=== PATIENT | female | born 1955 | race Caucasian/White ===

== ENCOUNTER 2019-01-28 01:04 | Day surgery (SDC) | payer MEDICARE ==
[2014-02-28 15:00] VITALS: Ht 166.4 cm; Wt 59.0 kg
[~2019-01-28] VITALS: Ht 166.4 cm; Wt 59.0 kg
[~2019-01-28 01:04] MED LIST: ALPR-1 PO; CIPR-344 PO; DEXA2TAB7 PO; FENT-15 TD; HYDR-385 PO; LEV112 PO; LEVO-3 PO; LORA10CA3 PO; METH4TAB66 PO; OMEP40CA48 PO; PROC10TA4; PROC10TA4 PO; PYRI100T59 PO; TRAM-420 PO
[2019-01-28] MEDS ORDERED: LIDOCAINE/SOD BICARB 8.4% SYR ID ONE (09:00)
[2019-01-28] MEDS ORDERED: NORMOSOL R SOLN(*) 1000 ML BAG 1,000 ML IV PRN (09:00)
[2019-01-28] MEDS ORDERED: metroNIDAZOLE* 500MG/100ML BAG 100 ML IVPB ONE (09:00)
[2019-01-28] MEDS ORDERED: FAMOTIDINE 20 MG TAB PO ONE (09:00)
[2019-01-28] MEDS ORDERED: MIDAZOLAM 2 MG/2 ML VIAL IVP PRN (09:00)
[2019-01-28] MEDS ORDERED: LEVOFLOXACIN/D5W*500 MG/100 ML 100 ML IVPB ONE (09:00)
[2019-01-28] MEDS ORDERED: fentaNYL CITR 100 MCG/2 ML AMP ONE (12:39)
[2019-01-28] MEDS ORDERED: ONDANSETRON 4 MG/2 ML VIAL ONE (12:40)
[2019-01-28] MEDS ORDERED: DEXAMETHASONE SOD PHOS 10MG/ML ONE (12:40)
[2019-01-28] MEDS ORDERED: PROPOFOL EMUL(*) 10MG/ML 20 ML 20 ML ONE (12:40)
[2019-01-28] MEDS ORDERED: LIDOCAINE MPF 1% 5 ML VIAL ONE (12:40)
[2019-01-28 13:30] VITALS: BP 104/70
[2019-01-28] MEDS ORDERED: FAMOTIDINE(*) 20MG/50ML PREMIX 50 ML IVPB ONE (13:58)
[2019-01-28] MEDS ORDERED: ROPIVACAINE 0.5% 20 ML VIAL ONE (14:06)
[2019-01-28] MEDS ORDERED: NS(*) 0.9% 10 ML VIAL 10 ML ONE ×2 (14:06→15:34)
[2019-01-28] MEDS ORDERED: HEPARIN SOD LCK FLSH 100 UN/ML ONE (14:06)
[2019-01-28] MEDS ORDERED: NS 0.9% 20 ML SDV 20 ML ONE (14:33)
[2019-01-28] MEDS ORDERED: EPINEPHrine HCL 1 MG/ML AMP ONE (15:35)
[2019-01-28] MEDS ORDERED: TRAM-420 PO (16:24)
--- NOTE | 2019-01-28 16:29 | Short(Outpt) Discharge Summary ---
Discharge Summary Reason for Hosp/Final Diag: (1) Carcinoma of ovary Status: Acute Hospital Course & Plan: Right IJ Power Port placed without problems. (2) Mass of colon Status: Chronic Hospital Course & Plan: Colonoscopy with biopsy of colon mass completed without problems. Departure Discharge to: Home, Self Care Discharge Instructions Home Meds Active Scripts Tramadol Hcl (TRAMADOL HCL) 50 Mg Tablet, 1 TAB PO Q4-6H for PAIN, #30 TAB 0 Refills Prov:MECCA COOL MD 01/28/19 Diet: Regular Activity: As Tolerated Special Instructions: You may leave the incisions open to air but leave the steristrips in place until they fall off on their own. You may shower starting on 01/30/19, but don't immerse the incisions for 2 weeks. There is a suture in your neck that SHOULD fall out in about 2 weeks. If it doesn't, cancer center staff can remove the suture or you can call my office and we'll be happy to remove the suture. Problem Qualifiers (1) Carcinoma of ovary: Laterality: unspecified laterality Qualified Codes: C56.9 - Malignant neoplasm of unspecified ovary MECCA COOL MD January 28, 2019 16:29
[2019-01-28] MEDS ORDERED: PROMETHAZINE 25 MG/ML 1 ML AMP ONE (16:46)
--- NOTE | 2019-01-28 16:49 | RADIOLOGY IMAGING REPORT ---
FACILITY: [facility] [place] PATIENT NAME: Gia Vargas : 1955 MR: [id number] V: [id number] EXAM DATE: ORDERING PHYSICIAN: MECCA COOL TECHNOLOGIST: Location: [facility] Patient: Gia Vargas : 1955 Visit/Account:[id number] Date of Sevice: 01/28/2019 Exam type: FLUORO NG TUBE PLACEMENT History: PORT CATH PLACEMENT Comparison: None. Findings: Two fluoroscopic spot views of the right upper thorax demonstrate placement of a right IJ implanted p ort. The distal tip is not included on the image. The total dose area product was 0.2577 Weldon per c entimeter squared IMPRESSION: 1. As above Report Dictated By: Elsa Manzano MD at 01/28/2019 4:44 PM Report E-Signed By: Elsa Manzano MD at 01/28/2019 4:45 PM WSN:[email or web address]
--- NOTE | 2019-01-28 17:02 | RADIOLOGY IMAGING REPORT ---
FACILITY: [facility] PATIENT NAME: Gia Vargas : 1955 MR: [id number] V: [id number] EXAM DATE: ORDERING PHYSICIAN: MECCA COOL TECHNOLOGIST: Location: [facility] - [place] Patient: Gia Vargas : 1955 Visit/Account:[id number] Date of Sevice: 01/28/2019 Chest single view: HISTORY: Right IJ PowerPort placement COMPARISON: Chest x-ray 02/24/2014 FINDINGS: Frontal view the chest: Since the prior study, a new chest port and catheter is been placed , catheter tip is near the right atrial SVC junction, reservoir in the subcutaneous soft tissues over lying the right mid hemithorax. Catheter has been placed via a right IJ approach. Heart and mediastinal contours are within normal limits. There is no infiltrate or pleural effusion. No pneumothorax. Pulmonary vasculature is normal. IMPRESSION: 1. No pneumothorax or other apparent complication status post chest port placement. 2. Right chest port catheter tip at the right atrial SVC junction, reservoir in the subcutaneous tis sues overlying the right chest wall. Report Dictated By: Agustina Solis MD at 01/28/2019 4:55 PM Report E-Signed By: Agustina oSlis MD at 01/28/2019 4:58 PM WSN:[email or web address]
[2019-01-28 17:15] VITALS: BP 108/66
--- NOTE | 2019-01-28 17:25 | Post Operative Progress Note ---
Post Operative Progress Note Date: January 28, 2019 Time: 16:30 Surgeon: Stella Dictation number: [id number] Anesthesia: LMA by Dr. Marrufo Pre-Op Diagnosis: H/O ovarian cancer Splenic flexure tumor on CT Post-Op Diagnosis: MAYELIN Findings: Tumor at splenic flexure Procedure(s): Right IJ Power Port placement Colonoscopy with biopsy of splenic flexure tumor Specimen Removed:(May be N/A): Biopsies of colon tumor Complications: None Fluids: Seen anesthesia record Estimated Blood Loss: Minimal Date OP Note Dictated: January 28, 2019 Time OP Note Dictated: 16:33 MECCA COOL MD January 28, 2019 16:33
[2019-01-28 17:30] VITALS: BP 104/69
--- NOTE | 2019-01-28 19:44 | OPERATIVE REPORT 1 ---
EVENT DATE: January 28, 2019 SURGEON: Luke Douglas MD ANESTHESIOLOGIST: Dangelo Marrufo MD ANESTHESIA: LMA. PREOPERATIVE DIAGNOSES 1. Metastatic stage IV cancer, unknown primary, presumed to be recurrent ovarian cancer. 2. History of ovarian cancer. POSTOPERATIVE DIAGNOSES 1. Metastatic stage IV cancer, unknown primary, presumed to be recurrent ovarian cancer. 2. History of ovarian cancer. PROCEDURES PERFORMED 1. Right internal jugular PowerPort placement. 2. Colonoscopy, refer to the endoscopy report for details about this. COMPLICATIONS None. CONDITION Stable. BLOOD LOSS Minimal. INDICATIONS This is a 63-year-old female with a history of ovarian cancer about five years ago who was undergoing routine surveillance by the oncologist, and CT scan showed what looks to be metastatic disease including in her liver, and there is a mass in the splenic flexure of her colon. He suspects it is a recurrence of her ovarian cancer, but he is requesting a PowerPort to start chemotherapy and a colonoscopy to biopsy the mass at the splenic flexure to get a better histologic diagnosis before starting chemotherapy. DESCRIPTION OF PROCEDURE The patient was brought to the operating room and placed supine on the operating table. LMA anesthesia was administered, and her right neck, chest, and shoulder were prepped and draped in a sterile fashion. Timeout was completed, and with her in Trendelenburg, I used the ultrasound to identify the right internal jugular vein. I used the needle and accessed the vein on one attempt, threaded the wire through the vein, and removed the needle with the wire in place. I confirmed the position of the wire in the SVC with the C-arm fluoroscope and then anesthetized the skin in the neck as well as the right infraclavicular skin. I then made a stab incision in the neck where the wire enters the skin and then made a transverse incision in the right infraclavicular skin right through the previous scar from a previous port when she was treated for ovarian cancer before. I then dissected through the dermis and subcutaneous fat. I dissected caudad to the incision, and this dissection was rather easy due to the presence of the previous port which had been in this pocket. I made sure this was hemostatic and then used the tunneler and dragged the catheter from the pocket up to the stem incision in the neck. I then removed the tunneler from the catheter. With her in Trendelenburg, I threaded the dilator and sheath over the wire, took a C-arm image to make sure that the dilator and sheath were in the SVC and then removed the dilator and wire, threaded the catheter through the sheath, and removed the sheath. I then pulled the catheter back under fluoroscopic guidance so the tip was in the SVC just above the right atrium, and then I cut it to length. I then put the port on the catheter and locked it into place with the locking cuff. I then sutured the port down to the underlying muscle fascia with 2-0 nylon at the corners. I then aspirated blood through the catheter port and then flushed it with 10 mL of normal saline and then flushed it with 5 mL of 100 units/mL of heparinized saline. I then aspirated blood, and it flushed without any problems. I then took more C-arm images to confirm it was in good position without any kinks or twists. Then, I placed a single 3-0 chromic in the stab incision in the neck and then closed the port pocket incision with interrupted 3-0 Vicryl deep dermal sutures and 4-0 Monocryl running subcuticular sutures. Skin was cleaned and dried, and Steri-Strips were applied over the incisions. We then positioned her for colonoscopy, and the colonoscopy was completed without problems. Please refer to the colonoscopy report for details about this. She was then awakened and LMA removed. She was transported to the recovery room in stable condition having tolerated the procedure without any apparent problems. REA
== END 2019-01-28 17:15 | disposition home or self-care (01) ==
LOC: OR 01:04
PROVIDERS: ATTEND Surgery
DX: C56.9 Malignant neoplasm of unspecified ovary (principal); D49.0 Neoplasm of unspecified behavior of digestive system; D49.59 Neoplasm of unspecified behavior of other genitourinary organ
CPT/HCPCS: 00811; 36561; 45380; 71045; 77001; 88305; J0171; J1100; J1956; J2001; J2250; J2405; J2550; J2704; J2795; J3010; J3490; J7050; C1788

== ENCOUNTER → 2019-02-15 | Outpatient (CLI) | payer MEDICARE ==
[2014-02-28 15:00] VITALS: BMI 22.0
[~2019-02-15] MED LIST changes: +GADOBENATE 529MG/1ML 15ML VIAL IVP ONE; +LEVO50TA80 PO
--- NOTE | 2019-02-15 14:20 | RADIOLOGY IMAGING REPORT ---
FACILITY: [facility] [place] PATIENT NAME: Gia Vargas : 1955 MR: [id number] V: [id number] EXAM DATE: ORDERING PHYSICIAN: JARAD WANG TECHNOLOGIST: Location: Patient: Gia Vargas : 1955 Visit/Account:[id number] Date of Sevice: 02/15/2019 Examination: MR brain without and with contrast History: Evaluate for metastatic disease, ovarian cancer Comparison: None Technique: Multiplane MR imaging was performed through the brain without and with contrast. 15 cc IV multihance was administered. Findings: Diffusion: Punctate T2 shine through artifact in the left frontal white matter noted. Ventricles: Normal Midline shift: None Extraxial fluid: None Midline craniocervical structures: Normal Parenchyma: Greater than 10 scattered punctate to small white matter high signal foci. Enhancement: No pathologic enhancement Vascular flow voids: Normal Orbits and paranasal sinuses: Small mucous retention cyst within a left posterior ethmoid air cell. Other: No significant additional finding. Impression: 1. No metastatic disease identified. 2. No acute finding. 3. Mild chronic small vessel ischemic change. Report Dictated By: Jon Junior MD at 02/15/2019 2:10 PM Report E-Signed By: Jon Junior MD at 02/15/2019 2:15 PM [id number]
== END ==
LOC: MRI 10:49
PROVIDERS: ATTEND Internal Medicine Hematology
DX: C56.2 Malignant neoplasm of left ovary (principal)
CPT/HCPCS: 70553; A9577

== ENCOUNTER → 2019-03-10 | Outpatient (CLI) | payer MEDICARE ==
[2014-02-28 15:00] VITALS: BMI 22.0
[~2019-03-10] MED LIST changes: -GADOBENATE 529MG/1ML 15ML VIAL IVP ONE; +LORA-630 PO; +OMEP-137 PO; +ONDA4TAB97 PO
== END ==
LOC: SPU 17:00
PROVIDERS: ATTEND Internal Medicine Hematology
DX: C56.9 Malignant neoplasm of unspecified ovary (principal)

== ENCOUNTER → 2019-04-13 | Outpatient (RCR) | payer MEDICARE, OTHER ==
[2014-02-28 15:00] VITALS: Ht 161.5 cm; Wt 59.2 kg
[2019-01-13 15:31] LABS: PLATELET COUNT, AUTOMATED 173 K/uL (150-450)
--- NOTE | 2019-01-13 22:58 | ONCOLOGY FOLLOW UP NOTE ---
EVENT DATE: January 13, 2019 DIAGNOSES 1. Recurrent ovarian carcinoma. 2. 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 3. Hypothyroidism. 4. Gastroesophageal reflux disease. 5. Hypertension. CHIEF COMPLAINT Gia is here today for followup for her recurrent ovarian carcinoma with complaints of bladder problems or bladder cancer. ONCOLOGY HISTORY This is a 63-year-old woman with the diagnosis of left ovarian carcinoma in 2011. 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 The tumor involves the left ovary, right ovary, omentum, endometrial mucosa, serosal surfaces of the uterus, appendix serosa, sigmoid colon serosa, and left pelvic sidewall. The patient was staged as FIGO stage IIIC (pT3c pNX cM0). Patient did not receive any adjuvant chemotherapy because she did not have insurance at that time. She then followed holistic measures for her treatment. INTERIM HISTORY Gia is a 63-year-old woman who has been lost to followup since August 2016. She was treated for her stage IIIC ovarian cancer with six cycles of carboplatin and Taxol between 02/28/14 and 07/29/14. She had a PET scan post chemotherapy which was negative for hypermetabolic metastasis, and she was deemed to be in complete remission. Since that time, patient tells me she has been just busy and has been following up with a homeopathic practitioner, Darius Monique. She reports being fairly healthy and very active and watches her weight, watches her sugar intake, and overall feels well. She does state that over the last four or five months, she has been plagued by bladder issues. She is quite adamant that she believes she either has stones or bladder cancer and would like for us to evaluate that today. She tells me that back in either the summer or fall of last year, she was seen at [facility] in [place], [place], for her UTI symptoms. She was prescribed a course of antibiotics. She did not really believe in antibiotics or medications and tells me that she tolerated antibiotics quite poorly. This then resulted in a vaginal yeast infection. She has not tried any prescription medications since that time and does not follow up with any physicians other than her homeopathic practitioner. She does not have a primary care physician. She does not have a clinical resource manager. She reports that she has pain sitting down, but denies that this is burning. She simply reports pain when sitting to urinate, but also states that she just has pain when sitting down. She tells me that she has been hypotensive in the past, but is unsure of how low her blood pressure has been. She was told her blood pressure was low by her homeopathic practitioner and in turn was given supplements for her adrenals. She is on numerous supplements to include supplements for her thyroid, for energy, and renal protection. She did recently have some back pain. Lastly, throughout our visit today and while trying to go over her history, she reported that she is aware that she has been lost to followup and is aware of importance for followup, but tells me that she actually had breast cancer prior to us seeing her for her left ovarian cancer. When I question her about this, she tells me that she was diagnosed by the person who sold her her electron light therapy machine. This person in turn "read her aura" and told her that they found breast cancer in the left breast. She simply used the electron phototherapy and tells me she was essentially cured of her left breast cancer. She then tells me that this person also believed that her breast cancer was spreading into her right breast, and again, she proceeded to use the electron therapy and was cured. She tells me that by the time we saw her for her ovarian cancer, her breast cancer was completely cured and as such was never diagnosed. She continues to use this electron phototherapy machine about three times per day. She is also undergoing acupuncture treatments at a facility called [facility] in [place], [place]. She also makes note and tells me that her does not agree with the fact that she does not follow up with medical doctors. She has not had a well-woman exam in at least a year, but has had Pap smears in the past. She tells me it has been at least 10 or 20 years since a mammogram. She has not noticed any suspicious lumps or bumps on her breasts. She does not notice any bloody urine or bloody stool. She has had no abdominal pain, no nausea, vomiting, constipation, or diarrhea. No recent fevers. No unintentional weight loss. She reports very good appetite. DIAGNOSTIC EVALUATION CT scan abdomen and pelvis done on January 21, 2014, did reveal severe ascites with edematous changes involving the wall of the colon which could represent edema with underlying ascites and third spacing. There was soft tissue thickening over distal esophagus and portion of stomach for which an endoscopy was recommended. There was also a small left-sided pleural effusion. CBC drawn today shows a white blood cell count of 3400, hemoglobin at 10.5, hematocrit at 32.1, with a platelet count of 336,000. Her chemistry is remarkable for a sodium of 136, a creatinine of 1.30, calcium of 8.0, and albumin of 2.8. Her CA-125 was 1703. Thyroid stimulating hormone (TSH) is pending. PROCEDURES 1. Esophagogastroduodenoscopy (EGD) and colonoscopy done on January 26, 2014. Esophagogastroduodenoscopy (EGD) showed an erosion noted in the esophagus consistent with esophagitis. Colonoscopy was normal. Duodenal, gastric, and distal esophageal biopsies were negative for malignancy. Terminal ileal and random colonic biopsies were also unremarkable. 2. Paracentesis done on February 08, 2014, and cytology of the ascitic fluid came back for acute and chronic inflammation with severe atypia, highly suspicious for malignancy. STAGING WORKUP 1. PET/CT scan done on February 11, 2014, came back positive for abnormal uptake in multiple areas in the chest, abdomen, pelvis, indicating widespread metastatic involvement. Areas of concern include lymph nodes in the internal mammary chain bilaterally, mediastinal lymph nodes, bilateral pleura diffusely throughout the peritoneum, right cardiophrenic lymph nodes, peritoneal masses, several solid masses in the peritoneum, and retroperitoneal nodes. 2. CA-125 was high at 1703. TREATMENT The patient started chemotherapy with carboplatin and Taxol on February 28, 2014. The patient completed six cycles of carboplatin and Taxol on July 29, 2014. PAST MEDICAL HISTORY 1. Left ovarian cancer diagnosed in 2011. No adjuvant chemotherapy received. 2. Gastroesophageal reflux disease (GERD). 3. Hypothyroidism. PAST SURGICAL HISTORY 1. Debulking surgery on April 14, 2012. 2. Repair of right torn Achilles tendon. 3. Surgery for tumor of the right hand. FAMILY HISTORY The father had some sort of cancer. The patient does not know exactly what type. A half sister had breast cancer in her 70s. SOCIAL HISTORY The patient is with three children. She is retired from bookkeeping and office work. She denies any abuse of tobacco, alcohol, or drugs. CURRENT MEDICATIONS 1. Thyrobin. 2. Cranberry supplement. 3. Renoven. 4. "Advin." ALLERGIES PENICILLIN. REVIEW OF SYSTEMS CONSTITUTIONAL: Patient denies any recent fevers, chills, or night sweats. No recent infections, though she does report a UTI back in September, and this is the reason for her presentation today. HEENT: She denies any nasal drainage. She denies any mouth sores. No vision changes or tinnitus. CARDIOVASCULAR: She reports her blood pressure is typically low and usually runs in the 90s systolic. She denies any chest pain, syncope, or presyncope. She is on medication supplement to help with adrenal support. RESPIRATORY: She denies any cough, sputum production, or hemoptysis. No pleuritic chest pain. GASTROINTESTINAL: She denies any abdominal pain, nausea, vomiting, constipation, diarrhea, bright red blood per rectum, or melena. Appetite is normal. GENITOURINARY: She is reporting some painful urination, mostly in the form of difficulty when sitting. She denies any hematuria. She denies any genitourinary discharge. She is worried she may have stones, if not bladder cancer. She denies any abnormal vaginal bleeding. MUSCULOSKELETAL: She has some intermittent back pain, but her electron phototherapy machines works well to relieve this. She occasionally has some fatigue. ENDOCRINE: She denies any heat or cold intolerance. She does have some fatigue, but tells me this is because she is always on the go. NEUROLOGIC: She denies any headaches. No seizure-like activity. No paresthesias. PSYCHIATRIC: She denies any severe anxiety, severe depression, suicidal or homicidal ideation. PHYSICAL EXAMINATION VITAL SIGNS: Weight today 134.6 pounds. T 97.0, P 74, R 14, BP 93/71, oxygen saturation 98% room air. GENERAL: This is a pleasant elderly-appearing 63-year-old woman who appears overall well hydrated, well nourished, and is in no acute distress. She does have some noticeable kyphosis on exam. HEAD: Atraumatic, normocephalic. EYES: Sclerae anicteric. ENT, MOUTH: Moist mucous membranes. No mucositis. NECK: Supple. No lymphadenopathy. No JVD. LUNGS: Clear breath sounds to auscultation bilaterally. No focal findings. CARDIOVASCULAR: Regular rate and rhythm. No ectopy. ABDOMEN: Soft, nontender, nondistended. Bowel sounds positive x4. No organomegaly. No obvious ascites. MUSCULOSKELETAL: Gait is steady. Patient does have some kyphosis noted on exam. EXTREMITIES: No edema. No clubbing or cyanosis. PSYCHIATRIC: Mood and affect are appropriate. NEUROLOGIC: Patient is awake, alert, oriented x3. Strength is 5/5 throughout. LABORATORY CBC today: WBC 3.1, ANC 1.8, hemoglobin 12.6, hematocrit 36.7%, platelets 173,000. CMP ordered today and is pending. UA also ordered, pending. Magnesium level, TSH, free T3, free T4, CEA, CA-125, and CA27.29 are all pending. IMPRESSION AND PLAN This is a pleasant 63-year-old woman who has a history of recurrent metastatic ovarian carcinoma. She has been lost to followup for the last three years. The patient was initially diagnosed with stage IIIC (pT3c pNx cM0) after debulking surgery done on April 14, 2012. The patient did not receive any adjuvant chemotherapy after her surgery because she did not have any insurance at that time. She presented with ascites, and CT scan of the abdomen January 21, 2014, did reveal the presence of significant ascites. Paracentesis February 08, 2014, and cytology of the ascitic fluid came back suspicious for malignancy. PET/CT scan done February 11, 2014, did reveal widespread metastatic disease in the chest, abdomen, and pelvis, including peritoneal lymph nodes. CA-125 was high at 1703. The patient received six cycles of chemotherapy with carboplatin and Taxol between February 28, 2014, through July 29, 2014. Her CA-125 dropped to normal, and at last check, it was at 18, though again, this was three years ago. She did have a PET/CT post completion of chemotherapy, which was negative for any disease, and she was deemed to be in complete remission. We did instruct her to follow up with us again in three months, though she has not been seen since August 2016. She is now presenting with complaints of bladder/urinary tract infection-type symptoms, though really specifically is saying that it is difficult for her to sit. She has pain especially when sitting to urinate. She has been following up with a holistic practitioner and is on numerous supplements. She does not follow up with any medical physicians. She does not have a primary care physician and has not seen clinical resource manager. She is extremely worried that she may have either bladder cancer or renal stones. She reports that her pain flares and is most noticeable in her lower abdomen, though exam was unremarkable, and she did not have any abdominal pain or suprapubic pain. In addition to her supplements, she is also using an electron phototherapy machine three times per day. She does believe that she had breast cancer prior to her ovarian cancer and states that this machine and therapy cured her of her cancer before we saw her with her ovarian cancer. My plan today is as follows: 1. Will check routine labs to include CBC, CMP, and I will also add magnesium level as patient does report hypotension and taking supplement for adrenals and needing excess salt. Will check a thyroid panel as she does report hypothyroidism with TSH, free T3, free T4, and will recheck CEA and CA-125. She is reporting a history of breast cancer, though again, this is undocumented. I will check CA27.29. 2. I have recommended patient have a bilateral screening mammogram as she has not had one in at least 10 to 20 years per her account. 3. Imaging: I think it would be prudent to try and re-image with a CT chest, abdomen, and pelvis. 4. If workup is negative, I do think she needs to follow up with a primary care physician, and we can certainly make a referral for her. She may also need to follow up with a urologist, though again, the only labs resulted to me today were her CBC. 5. I have asked the patient to return to clinic in two to three weeks for followup with her medical oncologist, Dr. Rahman, or after her CT scan. 6. We spent ample time reviewing her history, and all of her questions were answered. REA
--- NOTE | 2019-01-15 15:32 | RADIOLOGY IMAGING REPORT ---
FACILITY: [facility] - [place] PATIENT NAME: Gia Vargas : 1955 MR: [id number] V: [id number] EXAM DATE: ORDERING PHYSICIAN: JOHANNE SMILEY TECHNOLOGIST: Location: [facility] - [place] Patient: Gia Vargas : 1955 Visit/Account:[id number] Date of Sevice: 01/15/2019 CT CHEST ABDOMEN PELVIS W/O CON HISTORY: History of ovarian cancer, bladder pain ADDITIONAL HISTORY: None. TECHNIQUE: Contiguous axial images acquired through the chest abdomen and pelvis without IV contrast. Coronal and sagittal reformatting was also performed.Dose Lowering Technique One of the following dose optimization techniques was utilized in the performance of this exam: Autom ated exposure control; adjustment of the mA and/or kV according to the patient's size; or use of an i terative reconstruction technique. Specific details can be referenced in the facility's radiology C T exam operational policy. COMPARISON: CT abdomen pelvis January 21, 2014 and PET/CT August 22, 2014 FINDINGS: CHEST: Lungs/Pleura: There several small nonspecific nodules in the left lower lobe ranging in size up to 4 mm.. Metastases cannot be totally excluded Mediastinum/lymph nodes: The mediastinal structures are not ideally evaluated given the lack of intra venous contrast There are mildly prominent pretracheal lymph nodes. This has increased when compared to the prior PET/CT. A manufacturer's service representative lymph node measures 1.4 x 1 cm Heart/vessels: Negative. Bones/soft tissues: Tiny sclerotic density in the right iliac bone likely represents a bone island. There is a 7 mm right thyroid nodule additional smaller nodules in the left thyroid ABDOMEN AND PELVIS: Hepatobiliary: Hyperdense material within the gallbladder may represent stones or sludge. There is an irregular 2.8 x 1.8 cm solid hypoattenuating mass in the right lobe of the liver in seg ment eight this was not present on the prior PET/CT and is extremely concerning for a metastasis. Spleen: Negative. Pancreas: Negative. Adrenals: Negative. Kidneys ureters and bladder : The left kidney appears severely atrophic. The bladder is mostly decom pressed therefore not ideally evaluated although there does appear to be infiltrative changes in the surrounding fat suggesting possible inflammation Genitalia: There numerous clips in the pelvis. Uterus is not seen GI: There is a small hiatal hernia with thickening of the distal esophagus. There is a mass lesion in the proximal to mid descending colon measuring approximately 3.3 x 3.7 cm w hich was not present previously and is concerning for malignancy Vessels/spaces/nodes: There is extensive retroperitoneal adenopathy and mesenteric adenopathy that a ppears more prominent when compared the prior study. There is a small to moderate amount of free pel stalin fluid although the degree of abdominal and pelvic ascites is markedly decreased when compared to the prior PET/CT Bones/soft tissues: No aggressive appearing bone lesions are seen Additional findings: None pertinent. IMPRESSION: There are several nonspecific nodules in the left lower lobe ranging up to 4 mm. Metastases cannot b e totally excluded There has been increase in the paratracheal adenopathy since the prior study concerning for metastase s There is been development of a 2.8 x 1.8 cm hypoattenuating mass in segment eight of the liver concer ann marie for metastasis Hyperdense material within the gallbladder may represent stones or sludge Left kidney appears severely atrophic. The bladder is mostly decompressed separate not ideally evaluated. There does appear to be infiltrat sheldon changes in the surrounding fat suggesting possible inflammation although malignant spread from pa tient's ovarian cancer not excluded Small hiatal hernia with thickening of the distal esophagus which could be related to gastroesophagea l reflux disease although clinical correlation needed There is a mass lesion in the proximal to mid descending colon measuring 3.3 x 3.7 cm not present pre viously and is concerning for malignancy Extensive retroperitoneal and mesenteric adenopathy that appears more prominent is most likely metast atic.Small to moderate amount of free pelvic fluid although the degree of ascites is decreased when c ompared the prior study Report Dictated By: Elsa Manzano MD at 01/15/2019 11:19 AM Report E-Signed By: Elsa Manzano MD at 01/15/2019 3:28 PM [id number]
--- NOTE | 2019-01-18 16:01 | Oncology Note ---
I called Gia this afternoon at 3:45 PM to review her lab and CT scan results, and to explain the severity of them as well as the need for urgent F/U. Explained that her tumor markers were elevated, and her CA-125 is quite high, at 349. Explained that numerous areas of disease were seen on her CT scan and that a bone scan would likely be indicated as she was reporting some bony-type pain at her F/U visit last week. The patient told me that she's currently in [place] and that she has a very busy week planned with her granddaughter graduating this Friday. She then said that the entire month of January is going to be a very busy week for her and that she's uncertain as to when she can follow-up in clinic but will call us back to schedule. Again explained the severity and given that she was lost to F/u for the last 4 years, I highly encouraged F/U. She assured me she'd call to schedule that appointment. I made clinic staff aware to schedule her LAMAR if she does call, and I also notified our adjunct nursing faculty Agustina Petersen RN, of this conversation. I've updated Dr. Rahman as well. JOHANNE Bland APRN,MAKAYLA January 18, 2019 16:00
[2019-01-21 15:19] VITALS: BP 114/78
--- NOTE | 2019-01-21 23:50 | ONCOLOGY FOLLOW UP NOTE ---
EVENT DATE: January 21, 2019 DIAGNOSES 1. Recurrent ovarian carcinoma. 2. 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 3. Hypothyroidism. 4. Gastroesophageal reflux disease (GERD). 5. Hypertension. CHIEF COMPLAINT The patient is here today for followup of her recurrent metastatic cancer. ONCOLOGY HISTORY The patient is a 63-year-old female who was diagnosed with left ovarian carcinoma in 2011. 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 The tumor involves the left ovary, right ovary, omentum, endometrial mucosa, serosal surfaces of the uterus, appendix serosa, sigmoid colon serosa, and left pelvic sidewall. The patient was staged as FIGO stage IIIC (pT3C pNX cM0.) The patient did not receive any adjuvant chemotherapy because she did not have insurance at that time. The patient followed holistic measures for her treatment. PRESENTATION Abdominal distention for the last three weeks. DIAGNOSTIC EVALUATION CT scan abdomen and pelvis done on January 21, 2014, did reveal severe ascites with edematous changes involving the wall of the colon, which could represent edema with underlying ascites and third spacing. There was soft tissue thickening over distal esophagus and portion of stomach, for which an endoscopy was recommended. There was also a small left-sided pleural effusion. CBC drawn today shows a white blood cell count of 3400, hemoglobin at 10.5, hematocrit at 32.1, with a platelet count of 336,000. Her chemistry is remarkable for a sodium of 136, a creatinine of 1.30, calcium of 8.0, and albumin of 2.8. Her CA-125 was 1703. Thyroid stimulating hormone (TSH) is pending. PROCEDURES 1. Esophagogastroduodenoscopy (EGD) and colonoscopy done on January 26, 2014. Esophagogastroduodenoscopy (EGD) showed an erosion noted in the esophagus consistent with esophagitis. Colonoscopy was normal. Duodenal, gastric, distal esophageal biopsies were negative for malignancy. Terminal ileal and random colonic biopsies were also unremarkable. 2. Paracentesis done on February 08, 2014, and cytology of the ascitic fluid came back with acute and chronic inflammation with severe atypia, highly suspicious for malignancy. STAGING WORKUP 1. PET/CT scan done on February 11, 2014, came back positive for abnormal uptake in multiple areas in the chest, abdomen, and pelvis, indicating widespread metastatic involvement. Areas of concern include lymph nodes in the internal mammary chain bilaterally, mediastinal lymph nodes, bilateral pleura diffusely throughout the peritoneum, right cardiophrenic lymph nodes, peritoneal masses, several solid masses in the peritoneum, and retroperitoneal nodes. 2. CA-125 was high at 1703. TREATMENT The patient started chemotherapy with carboplatin and Taxol on February 28, 2014. The patient completed six cycles of carboplatin and Taxol on July 29, 2014. RECURRENCE Patient presented recently with severe abdominal pain at the bladder area with increased frequency of urine, so the patient had some evaluation. She had a CEA done, which was 3.8. CA27.29 was normal at 39.2. CA-125 was high at 349. TSH was high at 15.7. Free T4 was 0.67, and free T3 was 2.2. Her BUN was 29, creatinine 1.5, carbon dioxide was 20, chloride was 108, total protein was 9, and the albumin 4.7. CT chest, abdomen, and pelvis done on the January showed 2.8 x 1.8 cm mass in segment 8 of the liver. There were some gallstones or sludge. Left kidney was atrophic. There were infiltrative changes around the urinary bladder, but the urinary bladder was collapsed and could not be evaluated thoroughly. There was a 3.7 cm mass in the descending colon. There was also extensive retroperitoneal lymphadenopathy, increased paratracheal lymph nodes, could be metastatic. There were also some small 4 mm nodules in the left lobe of the liver which could be also metastatic. HISTORY OF PRESENT ILLNESS Patient is here today for followup of her recurrent ovarian carcinoma. She is complaining of abdominal pain in the bladder area. It is scaled as 7/10 per patient. She has today rectal bleeding for the first time. She had increased frequency of urine, and she had some allergic skin rash on her upper back. PAST MEDICAL HISTORY 1. Left ovarian cancer diagnosed in 2011. No adjuvant chemotherapy received. 2. Gastroesophageal reflux disease (GERD). 3. Hypothyroidism. PAST SURGICAL HISTORY 1. Debulking surgery on April 14, 2012. 2. Repair of right torn Achilles tendon. 3. Surgery for tumor of the right hand. SOCIAL HISTORY The patient is with three children. She is retired from bookkeeping and office work. She denies any abuse of tobacco, alcohol, or drugs. FAMILY HISTORY The father had some sort of cancer. The patient does not know exactly what type. A half sister had breast cancer in her 70s. CURRENT MEDICATIONS Omeprazole 40 mg daily. ALLERGIES PENICILLIN. REVIEW OF SYSTEMS CONSTITUTIONAL: No appetite or weight change. No fever, chills, or sweating. No recent infection. HEENT: Ears: No tinnitus or hearing problem. Nose: No nasal discharge or epistaxis. Throat: No sore throat or mouth ulcers. Eyes: No diplopia or visual changes. RESPIRATORY: No shortness of breath. No cough, expectoration, or hemoptysis. CARDIOVASCULAR: No chest pain, orthopnea, or paroxysmal nocturnal dyspnea (PND). No edema. No palpitations. GASTROINTESTINAL: No nausea or vomiting. No diarrhea or constipation. No change in bowel movements. No heartburn or swallowing difficulties. Patient had abdominal pain and rectal bleeding. No jaundice. No hematemesis or melena. GENITOURINARY: She has increased frequency of urine. MUSCULOSKELETAL: No pain in the muscles, joints, or bones. NEUROLOGIC: No tingling or numbness in the hands or feet. No headaches or convulsions. HEMATOLOGIC/LYMPHATIC: No bleeding or easy bruising. No weakness or fatigue. No enlarged lymph nodes. SKIN: She has an allergic skin rash over the upper back. PSYCHIATRIC: No anxiety or depression. PHYSICAL EXAMINATION GENERAL: Looks stable. Well developed, well nourished, and in no acute distress. VITAL SIGNS: Blood pressure 114/78, pulse 65 per minute, respirations 16 per minute, temperature 97, pulse ox 97% on room air. HEENT: Head: Atraumatic. No sinus tenderness to palpation. Eyes: No icterus or conjunctivitis. Mouth and Throat: No oral thrush or mucositis. NECK: Supple. No cervical or supraclavicular lymphadenopathy. LUNGS: Clear to auscultation and percussion bilaterally. HEART: Regular rate and rhythm. No gallops, murmurs, clicks, or rubs. ABDOMEN: Soft and lax. No tenderness. No hepatosplenomegaly. No masses. EXTREMITIES: No cyanosis, clubbing, or edema. LYMPHATICS: No peripheral lymphadenopathy. NEUROLOGIC: Conscious, alert, and oriented times three. No focal motor or sensory deficits. PSYCHIATRIC: Mood and affect appear normal. SKIN: No skin rash, bruise, or purpuric eruption. DIAGNOSTIC DATA CT chest, abdomen, and pelvis done on the January showed 2.8 cm mass in segment 8 of the liver and atrophic left kidney with infiltrative changes around the urinary bladder with 3.7 cm mass in the descending colon with extensive retroperitoneal lymphadenopathy with increased paratracheal lymph nodes, could be metastatic, and left lower lobe nodules, 4 mm, could be also metastatic. CA- 125 was high at 349. CEA was mildly elevated at 3.8, while CA27.29 was normal at 39.2. ASSESSMENT Recurrent metastatic ovarian carcinoma. Patient was initially diagnosed with stage IIIC (pT3 cpNx cM0) after debulking surgery done April 14, 2012. Patient did not receive any adjuvant chemotherapy after her surgery because she did not have any insurance at that time. She presented with ascites, and CT scan of the abdomen January 21, 2014, did reveal the presence of significant ascites. Paracentesis February 08, 2014, and cytology of the ascitic fluid came back suspicious for malignancy. PET/CT scan February 11, 2014, did reveal widespread metastatic disease in the chest, abdomen, and pelvis, including peritoneal lymph nodes. CA-125 was high at 1703. Patient received six cycles of chemotherapy with carboplatin and Taxol between February 28, 2014, through July 29, 2014. Her CA-125 dropped to the normal level, down to 18. PET/CT scan after the end of her chemotherapy was negative for hypermetabolic metastasis, and the patient was considered in complete remission. Currently, her CA-125 is high at 349, suggestive of recurrence. Her CT chest, abdomen, and pelvis done on the January showed 2.8 x 1.8 cm mass in segment 8 of the liver. There was also a 3.7 cm mass in the descending colon. There was an atrophic left kidney. There were infiltrative changes around the urinary bladder. There were extensive retroperitoneal lymphadenopathy. There were also increased paratracheal lymph nodes, suggestive of metastases, and 4 mm nodules of the left lung suggestive also of metastases. Given the descending colon mass could be metastatic from ovarian cancer or colon primary, I am planning to send the patient to Dr. Douglas for placement of single-lumen central port and also to do a colonoscopy for evaluation of the descending colon mass. If this mass turns out to be primary colon cancer, then I will biopsy the liver mass to be sure is it coming from the ovarian or from the colon cancer, but if the biopsy of the colon mass turns out to be ovarian carcinoma, then the patient has a recurrence of her ovarian cancer, and I will start to treat her again with chemotherapy. This time, I will add Avastin to the chemotherapy. As the patient has more than four to five years since her chemotherapy, I may be able to use carboplatin and Taxol again despite the fact she may have increased incidence of allergic reaction to carboplatin, but will see what those procedures will do. Regarding her urinary bladder symptoms, I am planning to put her on tramadol 50 mg q.6 hours p.r.n. for pain, and I am planning to do an ultrasound of the bladder. I will consider Urology consult for cystoscopy if needed. I explained all this to the patient and her , and they are agreeable with the plan of management. PLAN 1. Referral to Dr. Douglas for placement of central port and for colonoscopy. 2. Ultrasound of urinary bladder. 3. Consider Urology consult with cystoscopy. 4. Patient to return after the above for further evaluation and management. REA
--- NOTE | 2019-01-25 11:17 | RADIOLOGY IMAGING REPORT ---
FACILITY: [facility] - [place] PATIENT NAME: Gia Vargas : 1955 MR: [id number] V: [id number] EXAM DATE: ORDERING PHYSICIAN: JOHANNE SMILEY TECHNOLOGIST: Location: [facility] [place] Patient: Gia Vargas : 1955 Visit/Account:[id number] Date of Sevice: 01/25/2019 Urinary bladder ultrasound. HISTORY: Low abdominal pain, urinary frequency. COMPARISON: CT scan 01/15/2019. The urinary bladder is incompletely distended. The bladder prevoid volume measures 82 mL. The post void volume measures 9 mL. Right and left ureteral jets are present. A small amount of free fluid i s present in the left lower quadrant. Portions of the pelvis are obscured by bowel gas. IMPRESSION: Normal bladder post void residual. Minimal pelvic free fluid. Report Dictated By: Forrest Gillespie MD at 01/25/2019 11:09 AM Report E-Signed By: Forrest Gillespie MD at 01/25/2019 11:13 AM MARJORIEN:MICKIE
[2019-02-12 12:54] VITALS: BP 97/68
--- NOTE | 2019-02-12 19:22 | ONCOLOGY FOLLOW UP NOTE ---
EVENT DATE: February 12, 2019 DIAGNOSES 1. Recurrent ovarian carcinoma. 2. 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 3. Hypothyroidism. 4. Gastroesophageal reflux disease (GERD). 5. Hypertension. CHIEF COMPLAINT Patient is here today for followup of her recurrent metastatic cancer. ONCOLOGY HISTORY The patient is a 63-year-old female who was diagnosed with left ovarian carcinoma in 2011. 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 The tumor involves the left ovary, right ovary, omentum, endometrial mucosa, serosal surfaces of the uterus, appendix serosa, sigmoid colon serosa, and left pelvic sidewall. The patient was staged as FIGO stage IIIC (pT3C pNX cM0.) The patient did not receive any adjuvant chemotherapy because she did not have insurance at that time. The patient followed holistic measures for her treatment. PRESENTATION Abdominal distention for the last three weeks. DIAGNOSTIC EVALUATION CT scan abdomen and pelvis done on January 21, 2014, did reveal severe ascites with edematous changes involving the wall of the colon, which could represent edema with underlying ascites and third spacing. There was soft tissue thickening over distal esophagus and portion of stomach, for which an endoscopy was recommended. There was also a small left-sided pleural effusion. CBC drawn today shows a white blood cell count of 3400, hemoglobin at 10.5, hematocrit at 32.1, with a platelet count of 336,000. Her chemistry is remarkable for a sodium of 136, a creatinine of 1.30, calcium of 8.0, and albumin of 2.8. Her CA-125 was 1703. Thyroid stimulating hormone (TSH) is pending. PROCEDURES 1. Esophagogastroduodenoscopy (EGD) and colonoscopy done on January 26, 2014. Esophagogastroduodenoscopy (EGD) showed an erosion noted in the esophagus consistent with esophagitis. Colonoscopy was normal. Duodenal, gastric, distal esophageal biopsies were negative for malignancy. Terminal ileal and random colonic biopsies were also unremarkable. 2. Paracentesis done on February 08, 2014, and cytology of the ascitic fluid came back with acute and chronic inflammation with severe atypia, highly suspicious for malignancy. STAGING WORKUP 1. PET/CT scan done on February 11, 2014, came back positive for abnormal uptake in multiple areas in the chest, abdomen, and pelvis, indicating widespread metastatic involvement. Areas of concern include lymph nodes in the internal mammary chain bilaterally, mediastinal lymph nodes, bilateral pleura diffusely throughout the peritoneum, right cardiophrenic lymph nodes, peritoneal masses, several solid masses in the peritoneum, and retroperitoneal nodes. 2. CA-125 was high at 1703. TREATMENT The patient started chemotherapy with carboplatin and Taxol on February 28, 2014. The patient completed six cycles of carboplatin and Taxol on July 29, 2014. RECURRENCE Patient presented recently with severe abdominal pain at the bladder area with increased frequency of urine, so the patient had some evaluation. She had a CEA done, which was 3.8. CA27.29 was normal at 39.2. CA-125 was high at 349. TSH was high at 15.7. Free T4 was 0.67, and free T3 was 2.2. Her BUN was 29, creatinine 1.5, carbon dioxide was 20, chloride was 108, total protein was 9, and the albumin 4.7. CT chest, abdomen, and pelvis done on the January showed 2.8 x 1.8 cm mass in segment 8 of the liver. There were some gallstones or sludge. Left kidney was atrophic. There were infiltrative changes around the urinary bladder, but the urinary bladder was collapsed and could not be evaluated thoroughly. There was a 3.7 cm mass in the descending colon. There was also extensive retroperitoneal lymphadenopathy, increased paratracheal lymph nodes, could be metastatic. There were also some small 4 mm nodules in the left lobe of the liver which could be also metastatic. Patient had a colonoscopy and biopsy of the descending colon mass done on the January, and the pathology came back positive for poorly differentiated carcinoma consistent with metastasis of ovarian serous carcinoma. CA-125 was 349. CEA was 3.8. Ultrasound of urinary bladder done on the January postvoid was normal, without any blood or abnormality. HISTORY OF PRESENT ILLNESS Patient is here today for followup of her ovarian carcinoma. She is still complaining of abdominal pain in the bladder area, but generally she is feeling better, and she is ready to start her chemotherapy for her disease. She has the will to get rid of it this time as she did last time. She still has some urinary symptoms with increased frequency of urine. PAST MEDICAL HISTORY 1. Left ovarian cancer diagnosed in 2011. No adjuvant chemotherapy received. 2. Gastroesophageal reflux disease (GERD). 3. Hypothyroidism. PAST SURGICAL HISTORY 1. Debulking surgery on April 14, 2012. 2. Repair of right torn Achilles tendon. 3. Surgery for tumor of the right hand. SOCIAL HISTORY The patient is with three children. She is retired from bookkeeping and office work. She denies any abuse of tobacco, alcohol, or drugs. FAMILY HISTORY The father had some sort of cancer. The patient does not know exactly what type. A half sister had breast cancer in her 70s. CURRENT MEDICATIONS Omeprazole 40 mg daily. ALLERGIES PENICILLIN. REVIEW OF SYSTEMS CONSTITUTIONAL: No appetite or weight change. No fever, chills, or sweating. No recent infection. HEENT: Ears: No tinnitus or hearing problem. Nose: No nasal discharge or epistaxis. Throat: No sore throat or mouth ulcers. Eyes: No diplopia or visual changes. RESPIRATORY: No shortness of breath. No cough, expectoration, or hemoptysis. CARDIOVASCULAR: No chest pain, orthopnea, or paroxysmal nocturnal dyspnea (PND). No edema. No palpitations. GASTROINTESTINAL: No nausea or vomiting. No diarrhea or constipation. No change in bowel movements. No heartburn or swallowing difficulties. Abdominal pain at the lower bladder area. No jaundice. No hematemesis, melena, or rectal bleeding. GENITOURINARY: She has increased frequency of urine. No hematuria or dysuria. MUSCULOSKELETAL: No pain in the muscles, joints, or bones. NEUROLOGIC: No tingling or numbness in the hands or feet. No headaches or convulsions. HEMATOLOGIC/LYMPHATIC: No bleeding or easy bruising. No weakness or fatigue. No enlarged lymph nodes. SKIN: No skin rash or lumps. PSYCHIATRIC: No anxiety or depression. PHYSICAL EXAMINATION GENERAL: Looks stable. Well developed, well nourished, and in no acute distress. VITAL SIGNS: Blood pressure 97/68, pulse 62 per minute, respirations 16 per minute, temperature 97.7, pulse ox 97% on room air. HEENT: Head: Atraumatic. No sinus tenderness to palpation. Eyes: No icterus or conjunctivitis. Mouth and Throat: No oral thrush or mucositis. NECK: Supple. No cervical or supraclavicular lymphadenopathy. LUNGS: Clear to auscultation and percussion bilaterally. HEART: Regular rate and rhythm. No gallops, murmurs, clicks, or rubs. ABDOMEN: Soft and lax. No tenderness. No hepatosplenomegaly. No masses. EXTREMITIES: No cyanosis, clubbing, or edema. LYMPHATICS: No peripheral lymphadenopathy. NEUROLOGIC: Conscious, alert, and oriented times three. No focal motor or sensory deficits. PSYCHIATRIC: Mood and affect appear normal. SKIN: No skin rash, bruise, or purpuric eruption. DIAGNOSTIC DATA CBC showed white count 3.1, hemoglobin 12.6, hematocrit 36.7, platelets 173,000, ANC 1.8. Chem panel totally normal except chloride 108, carbon dioxide 20, BUN 29, creatinine 1.5, total protein 9. CEA 3.8. CA-125 of 349. Ultrasound of bladder on the January was normal postvoid. Colonoscopy with biopsy of the descending colon mass done on the January came back positive for poorly differentiated carcinoma consistent with metastatic ovarian serous carcinoma. ASSESSMENT Recurrent metastatic ovarian carcinoma. Patient was initially diagnosed with stage IIIC (pT3 pNx cM0) after debulking surgery done April 14, 2012. Patient did not receive any adjuvant chemotherapy after her surgery because she did not have any insurance at that time. She presented with ascites, and CT scan of the abdomen January 21, 2014, did reveal the presence of significant ascites. Paracentesis February 08, 2014, and cytology of the ascitic fluid came back suspicious for malignancy. PET/CT scan on the January did reveal widespread metastatic disease in the chest, abdomen, and pelvis, including peritoneal lymph nodes. CA-125 was high at 1703. Patient received six cycles of chemotherapy with carboplatin and Taxol between February 28, 2014, through July 29, 2014. CA-125 dropped to the normal level, down to 18. PET/CT scan after the end of her chemotherapy was negative for hypermetabolic metastasis, and the patient was considered in complete remission. Her current CA-125 is high at 349, suggestive of recurrence. Her CT chest, abdomen, and pelvis done on the January showed a 2.8 x 1.8 cm mass in segment 8 of the liver. There was also a 3.7 cm mass in the descending colon. There was an atrophic left kidney. There were infiltrative changes around the urinary bladder. There was extensive retroperitoneal lymphadenopathy. There were also increased paratracheal lymph nodes suggestive of metastases and 4 mm nodules in the left lower lobe of the lung suggestive of metastases. Patient had colonoscopy with biopsy of the descending colon mass done on the January, and the pathology came back positive for poorly differentiated carcinoma consistent with metastatic ovarian serous carcinoma. Ultrasound of the bladder done on the January came back normal postvoid. To complete her staging workup, I am planning to get a MRI of the brain with and without contrast. I had a long discussion with the patient today, and because she has recurrence after five years of her initial chemotherapy, the option of chemotherapy will be either repeat the same with carboplatin and Taxol with addition of Avastin versus Avastin and FOLFIRI. The patient was given the side effects expected from her treatment, and she does not want to have neuropathy again, so for this reason we are going to treat her with Avastin and FOLFIRI. Because of her leukopenia, patient will receive Neulasta after each cycle of chemotherapy. I am planning to start her chemotherapy next week, and I will see her in two weeks starting chemotherapy with CBC, chemistry panel, and CA-125 prior to her next cycle of chemotherapy. PLAN 1. MRI of brain with and without contrast. 2. Avastin and FOLFIRI to start next week. 3. CBC and chem panel to be checked weekly. 4. Patient to return two weeks after she starts her chemotherapy with CBC, chem panel, and CA-125. 5. Neulasta 6 mg subcutaneously after each cycle of chemotherapy. 6. Patient to contact us for any new concerns or complaints. MTDD
[2019-02-19 09:46] VITALS: BP 108/75
[2019-02-23 08:43] VITALS: BP 106/76
[2019-02-23] MEDS: LIDOCAINE/SOD BICARB 8.4% SYR ID PRN (08:59)
[2019-02-23] MEDS: PALONOSETRON 0.25 MG/5 ML VIAL IVP PRN (09:50)
[2019-02-23] MEDS: DEXAMETHASONE SOD PHOS 10MG/ML IVP PRN (09:50)
--- NOTE | 2019-02-24 00:27 | ONCOLOGY CHEMO TEACHING ---
EVENT DATE: February 23, 2019 DIAGNOSIS Recurrent metastatic ovarian carcinoma. The patient is seen today for chemotherapy teaching. Her joined us toward the end of this session. A total of 60 minutes was spent with them, 100% of which was [id number] counseling. HISTORY OF PRESENT ILLNESS Patient is a 63-year-old female who is seen today to discuss upcoming chemotherapy with FOLFIRI and Avastin. She is somewhat hesitant about therapy, as she had a very difficult time with her previous chemo in 2013. However, she is willing to "give it a try." She is very clear about her desire to have quality of life. She had significant struggles with nausea requiring IV hydration, but I am hopeful that we can control this with the current therapy. She was also noted to be leukopenic, and Dr. Rahman is planning on Neulasta after each cycle of treatment. ONCOLOGY HISTORY Patient is a 63-year-old female who was diagnosed with a stage IIIC (pT3 pNX CM0) ovarian carcinoma. She underwent debulking surgery on 04/14/12. She did not receive any adjuvant chemotherapy after her surgery due to insurance issues. She presented with ascites, and PET scan on 02/11/14 showed widespread metastatic disease in the chest, abdomen and pelvis. CA125 was high at 1703. She completed six cycles of carboplatin and Taxol on 07/29/14. CA125 at that time had decreased to 18. PET scan at the end of chemotherapy was negative for metastases, and she was considered to be in complete remission. She then presented in 2018 with a CA125 of 349. CT of the chest, abdomen and pelvis on 01/15/19 showed a 2.8 x 1.8 cm mass in the liver as well as a 3.7 cm mass in the descending colon, and infiltrative changes around the bladder, with extensive retroperitoneal adenopathy. She underwent colonoscopy with biopsy of the descending colon mass on 01/28/19, and pathology was positive for poorly differentiated carcinoma consistent with metastatic ovarian serous carcinoma. To begin treatment with FOLFIRI and Avastin followed by Neulasta on 02/23/19. PAST MEDICAL HISTORY 1. Recurrent metastatic ovarian carcinoma, diagnosed in March 2012. No adjuvant chemotherapy received initially. 2. GERD. 3. Hypothyroidism. PAST SURGICAL HISTORY 1. Debulking surgery, 04/14/12. 2. Repair of right torn Achilles tendon. 3. Surgery for tumor on the right hand. SOCIAL HISTORY The patient is with three children. She is retired from bookkeeping and office work. She does not smoke, drink alcohol or use illicit drugs. FAMILY HISTORY Father had an unknown type of cancer. Half sister had breast cancer in her 70s. MEDICATIONS 1. Omeprazole 40 mg daily. 2. Levothyroxine 75 mcg daily. ALLERGIES 1. PENICILLINS. 2. NITROFURANTOIN. DISCUSSION 1. A total of 60 minutes was spent in counseling today, 100% of which was face to face. At today's chemotherapy teaching session, we discussed her diagnosis as well as the planned chemotherapy regimen and toxicities associated with 5FU, irinotecan, Avastin, and Neulasta. Handouts of these drugs were provided and reviewed in detail. 2. Side effects and toxicities of chemotherapy agents included, but were not limited to: A. Bone marrow suppression, specifically neutropenia. She is instructed to contact our offices with any signs of infection. CBC will be monitored routinely. We discussed common sense approaches including routine hand washing and avoidance of crowds/sick people if neutropenic. B. GI side effects. Discussed the possibility of nausea, vomiting, diarrhea and constipation. She will receive IV antiemetics and will be prescribed antiemetics for home use. If she were to have diarrhea, recommended Imodium. If she were to have constipation, recommended Senna-S or Miralax routinely. Further interventions will be made based on side effects. I reinforced the possibility of diarrhea with the irinotecan, and she will purchase Imodium for use. I have given her a written handout for antiemetics as well as antidiarrheals. C. side effects. Discussed the importance of adequate hydration (minimum 8 cups of fluid per day) and emptying the bladder on a regular basis. IV hydration can be scheduled as needed. D. Mouth sores. Recommended salt water or baking soda gargles as needed. E. Skin toxicity. Discussed that chemotherapy was very drying to the skin and mucous membranes. Recommended routine moisturizing as well as sun protection. F. Alopecia. We reviewed that her hair will likely thin. She understands that we have a wig shop available. G. Fatigue. Discussed that this is one of the most common complaints of patients undergoing chemotherapy. I have encouraged her to remain as active as possible, taking frequent rests as needed. H. Hypertension. This can be associated with Avastin. She will be monitored closely. I. Bleeding. This can also be associated with the Avastin. We discussed that no surgery should be performed within four to six weeks of Avastin. J. Arthralgias. Often common with Neulasta. She will be monitored for this. 3. I have instructed the patient to call our office if she is prescribed any new medications. It is recommended that multiple supplements or herbal medications may not be taken as these may interfere with the action of the chemotherapy. 4. Discussed dietary issues associated with chemotherapy including anorexia and changes in taste. 5. Office contact information ([phone]) is given. I have encouraged the patient to call with any issues regarding treatment. 6. The patient will begin treatment with cycle #1 of FOLFIRI and Avastin on 02/23/19. She will receive Neulasta on 02/25/19. She will be seen in followup for a toxicity check one week later. MTDD
[2019-02-25 10:53] VITALS: BP 101/69
[2019-02-25] MEDS: PEGFILGRASTIM 6 MG/0.6 ML SYR SUBQ PRN (11:03)
[2019-02-25] MEDS: HEPARIN FLSH (PORT) 500 UN/5ML IVP PRN (11:03)
[2019-02-26 11:42] VITALS: BP 106/80
[2019-02-26] MEDS: NS(*) 0.9% 1000 ML BAG 1,000 ML IV PRN (11:42)
[2019-02-26 13:12] VITALS: BP 101/70
[2019-02-26] MEDS: HEPARIN FLSH (PORT) 500 UN/5ML IVP PRN (13:21)
[2019-02-26] MEDS: LIDOCAINE/SOD BICARB 8.4% SYR ID PRN (13:21)
[2019-03-02 09:38] VITALS: BP 101/72
[2019-03-02 10:14] LABS: PLATELET COUNT, AUTOMATED 38 K/uL (150-450)
--- NOTE | 2019-03-02 21:24 | ONCOLOGY FOLLOW UP NOTE ---
EVENT DATE: March 02, 2019 CHIEF COMPLAINT Followup for metastatic ovarian cancer. HISTORY OF PRESENT ILLNESS Patient is a 63-year-old female who was seen today in one-week followup after receiving cycle #1 of FOLFIRI and Avastin. This was followed by Michelle. She initially felt fairly well. However, since then, she has developed some mild constipation, continued mild nausea, significant fatigue, and "heartburn." She has seen her authorization rep, who is helping with some of these symptoms. Her authorization rep recommends aloe vera juice, and I told her that this would be helpful. BUN and creatinine are elevated today as she has not been drinking much, and she will receive IV hydration tomorrow. ONCOLOGY HISTORY Patient is a 63-year-old female who was diagnosed with a stage IIIC (pT3 pNX cM0) ovarian carcinoma. She underwent debulking surgery on 04/14/12. She did not receive any adjuvant chemotherapy after her surgery due to insurance issues. She presented with ascites, and PET scan on 02/11/14 showed widespread metastatic disease in the chest, abdomen, and pelvis. CA-125 was high at 1703. She completed six cycles of carboplatin and Taxol on 07/29/14. CA-125 at that time had decreased to 18. PET scan at the end of chemotherapy was negative for metastases, and she was considered to be in complete remission. She then presented in 2018 with a CA-[address] of the chest, abdomen, and pelvis on 01/15/19 showed a 2.8 x 1.8 cm mass in the liver as well as a 3.7 cm mass in the descending colon and infiltrative changes around the bladder with extensive retroperitoneal adenopathy. She underwent colonoscopy with biopsy of the descending colon mass on 01/28/19, and pathology was positive for poorly differentiated carcinoma consistent with metastatic ovarian serous carcinoma. Began treatment with FOLFIRI and Avastin, followed by Michelle on 02/23/19. PAST MEDICAL HISTORY 1. Recurrent metastatic ovarian carcinoma, diagnosed in March 2012. No adjuvant chemotherapy received initially. 2. GERD. 3. Hypothyroidism. PAST SURGICAL HISTORY 1. Debulking surgery, 04/14/12. 2. Repair of right torn Achilles tendon. 3. Surgery for tumor on the right hand. SOCIAL HISTORY The patient is with three children. She is retired from bookkeeping and office work. She does not smoke, drink alcohol, or use illicit drugs. FAMILY HISTORY Father had an unknown type of cancer. Half sister had breast cancer in her 70s. MEDICATIONS Levothyroxine 75 mcg daily. ALLERGIES 1. PENICILLINS. 2. NITROFURANTOIN. REVIEW OF SYSTEMS A 12-point review of systems is performed and is negative except as stated above. PHYSICAL EXAMINATION VITAL SIGNS: BP 101/72, P 68, R 16, temp 97.8, O2 sat 94%. GENERAL: Patient is a well-developed, but fatigued-appearing female in no acute distress. HEAD: Normocephalic, atraumatic. EYES: Sclerae anicteric. MOUTH: Slightly dry mucous membranes with some cracking noted on her lips. NECK: Supple. No palpable adenopathy. LUNGS: Clear bilaterally. CARDIOVASCULAR: Heart rate regular, 68 per minute. ABDOMEN: Soft with mid epigastric tenderness. Hypoactive bowel sounds. EXTREMITIES: No edema. NEUROLOGIC: Nonfocal. LABORATORY CBC today reveals a WBC of 3.6, ANC of 2.2, hemoglobin 10.6, hematocrit 31.4, platelets 38,000. CMP shows a BUN and creatinine of 29 and 1.5 respectively. IMPRESSION The patient is a 63-year-old female diagnosed with a stage IIIC (pT3 pNX cM0) ovarian carcinoma in 2011, underwent debulking surgery, but did not receive adjuvant chemotherapy. Presented with ascites, and PET scan in January 2014 showed widespread metastatic disease. Completed six cycles of carboplatin and Taxol on 07/29/14. PET at the end of treatment was negative for metastases. She then presented in 2018 with a CA-[address] of the chest, abdomen, and pelvis on 01/15/19 showed metastatic disease in the liver as well as a mass in the descending colon and infiltrative changes around the bladder with extensive retroperitoneal adenopathy. 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 Began treatment with FOLFIRI and Avastin, followed by Neulasta on 02/23/19. PLAN 1. Metastatic ovarian cancer. Patient is seen one week after receiving her first cycle of FOLFIRI and Avastin, followed by Neulasta. She initially tolerated this well, but has since developed significant fatigue, GERD symptoms, constipation, and mild nausea. 2. GI. Mild constipation. She states she has tried to control this with foods. She is aware of the risk of diarrhea with irinotecan. 3. GERD symptoms. Describes some mild nausea five to seven days out from treatment. I suspect this is more GERD related. Will restart omeprazole 20 mg daily. 4. Thrombocytopenia. Platelet count has decreased to 38,000 from 154,000 at start of treatment. She denies any excessive bruising or bleeding, but will monitor this. 5. Renal. BUN and creatinine are both elevated at 29 and 1.5 respectively. She relates she has not been drinking much, so she will be hydrated with 1 L of normal saline tomorrow. 6. Follow up as scheduled on 03/09/19 for cycle #2 of treatment, or earlier if there is a problem. MTDD
[2019-03-03 11:41] VITALS: BP 103/60
[2019-03-03] MEDS: NS(*) 0.9% 1000 ML BAG 1,000 ML IV PRN (11:47)
[2019-03-03] MEDS: HEPARIN FLSH (PORT) 500 UN/5ML IVP PRN (11:47)
[2019-03-09 08:38] VITALS: BP 107/70
[2019-03-09] MEDS: PALONOSETRON 0.25 MG/5 ML VIAL IVP PRN (09:43)
[2019-03-09] MEDS: DEXAMETHASONE SOD PHOS 10MG/ML IVP PRN (09:44)
[2019-03-11 11:22] VITALS: BP 99/66
[2019-03-11] MEDS: HEPARIN FLSH (PORT) 500 UN/5ML IVP PRN (11:25)
[2019-03-11] MEDS: PEGFILGRASTIM 6 MG/0.6 ML SYR SUBQ PRN (11:26)
[2019-03-12 11:41] VITALS: BP 93/59
[2019-03-12] MEDS: NS(*) 0.9% 1000 ML BAG 1,000 ML IV PRN (11:44)
[2019-03-12] MEDS: HEPARIN FLSH (PORT) 500 UN/5ML IVP PRN (11:45)
[2019-03-16] MEDS: NS(*) 0.9% 1000 ML BAG 1,000 ML IV PRN (13:05)
[2019-03-16 13:32] VITALS: BP 106/73
[2019-03-16] MEDS: HEPARIN FLSH (PORT) 500 UN/5ML IVP PRN (14:06)
[2019-03-16 14:19] LABS: PLATELET COUNT, AUTOMATED 38 K/uL (150-450)
[2019-03-17 15:21] VITALS: BP 105/63
[2019-03-17] MEDS: HEPARIN FLSH (PORT) 500 UN/5ML IVP PRN (15:26)
[2019-03-17] MEDS: NS(*) 0.9% 1000 ML BAG 1,000 ML IV PRN (15:26)
[2019-03-17 16:36] VITALS: BP 118/80
[2019-03-23 08:42] VITALS: BP 104/64
[2019-03-23] MEDS: PALONOSETRON 0.25 MG/5 ML VIAL IVP PRN (09:42)
[2019-03-23] MEDS: DEXAMETHASONE SOD PHOS 10MG/ML IVP PRN (09:42)
[2019-03-23] MEDS: D5W IVPB ONE ×2 (10:15→11:09)
[2019-03-23] MEDS: [UNRECOGNIZED DRUG - OTHER] IVPB ONE ×2 (10:15→11:09)
[2019-03-23] MEDS: IRINOTECAN HCL IVPB ONE ×2 (10:15→11:09)
[2019-03-23 12:40] VITALS: BP 110/63
--- NOTE | 2019-03-23 13:08 | ONCOLOGY FOLLOW UP NOTE ---
EVENT DATE: March 23, 2019 CHIEF COMPLAINT Followup for metastatic ovarian cancer. HISTORY OF PRESENT ILLNESS Patient is a 63-year-old female who was seen today for consideration of cycle #3 of FOLFIRI and Avastin. This will be followed by Michelle. She is doing fairly well and actually was able to enjoy a weekend with her family. She does continue with some fatigue. She describes some bleeding from her nose but nothing persistent. Her biggest issue today is that of lower abdominal cramping, which has been very intermittent. She had an episode of diarrhea today and used Imodium but diarrhea has not been persistent. Otherwise, she feels ready for today's treatment. She has required hydration after treatment. ONCOLOGY HISTORY Patient is a 63-year-old female who was diagnosed with a stage IIIC (pT3 pNX cM0) ovarian carcinoma. She underwent debulking surgery on 04/14/12. She did not receive any adjuvant chemotherapy after her surgery due to insurance issues. She presented with ascites, and PET scan on 02/11/14 showed widespread metastatic disease in the chest, abdomen, and pelvis. CA-125 was high at 1703. She completed six cycles of carboplatin and Taxol on 07/29/14. CA-125 at that time had decreased to 18. PET scan at the end of chemotherapy was negative for metastases, and she was considered to be in complete remission. She then presented in 2018 with a CA-[address] of the chest, abdomen, and pelvis on 01/15/19 showed a 2.8 x 1.8 cm mass in the liver as well as a 3.7 cm mass in the descending colon and infiltrative changes around the bladder with extensive retroperitoneal adenopathy. She underwent colonoscopy with biopsy of the descending colon mass on 01/28/19, and pathology was positive for poorly differentiated carcinoma consistent with metastatic ovarian serous carcinoma. Began treatment with FOLFIRI and Avastin, followed by Michelle on 02/23/19. PAST MEDICAL HISTORY 1. Recurrent metastatic ovarian carcinoma, diagnosed in March 2012. No adjuvant chemotherapy received initially. 2. GERD. 3. Hypothyroidism. PAST SURGICAL HISTORY 1. Debulking surgery, 04/14/12. 2. Repair of right torn Achilles tendon. 3. Surgery for tumor on the right hand. SOCIAL HISTORY The patient is with three children. She is retired from bookkeeping and office work. She does not smoke, drink alcohol, or use illicit drugs. FAMILY HISTORY Father had an unknown type of cancer. Half sister had breast cancer in her 70s. MEDICATIONS 1. Synthroid 50 mcg daily. 2. Omeprazole 20 mg daily. 3. Tramadol 50 mg p.r.n. pain. ALLERGIES 1. PENICILLINS. 2. NITROFURANTOIN. REVIEW OF SYSTEMS A 12-point review of systems is performed and is negative except as stated above. PHYSICAL EXAMINATION VITAL SIGNS: Weight 59.2 kg. BP 104/64, P 72, R 16, temp 98.6, O2 sat 94%. GENERAL: Patient is a well-developed, well-nourished but fatigued-appearing female in no acute distress. HEAD: Normocephalic, atraumatic. EYES: Sclerae anicteric. MOUTH: Slightly dry mucous membranes. No lesions. NECK: Supple. No palpable adenopathy. CARDIOVASCULAR: Heart rate regular, 72 per minute. LUNGS: Clear bilaterally. ABDOMEN: Soft, nontender, nondistended with hypoactive bowel sounds. No organomegaly. EXTREMITIES: No edema. NEUROLOGIC: Nonfocal. LABORATORY CBC today reveals a WBC of 4.4, ANC of 2.8, hemoglobin 9.9, hematocrit 29.4, platelets 148,000. CMP shows potassium 3.3, BUN 17, creatinine 1.4, albumin 3.3. IMPRESSION The patient is a 63-year-old female diagnosed with a stage IIIC (pT3 pNX cM0) ovarian carcinoma in 2011, underwent debulking surgery, but did not receive adjuvant chemotherapy. Presented with ascites, and PET scan in January 2014 showed widespread metastatic disease. Completed six cycles of carboplatin and Taxol on 07/29/14. PET at the end of treatment was negative for metastases. She then presented in 2019 with a CA-[address] of the chest, abdomen, and pelvis on 01/15/19 showed metastatic disease in the liver as well as a mass in the descending colon and infiltrative changes around the bladder with extensive retroperitoneal adenopathy. 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 Began treatment with FOLFIRI and Avastin, followed by Michelle on 02/23/19. PLAN 1. Metastatic ovarian cancer. Cycle #3 of FOLFIRI and Avastin. This will be followed by Michelle. 2. GI. Describes lower abdominal cramping. She had one episode of diarrhea, controlled with Imodium. Cramping has been very intermittent. She will consider using Imodium for this, being careful not to cause constipation. 3. Response. CA-125 has decreased from 349 on January 13, 2019 to 106 on March 16, 2019. 4. Anemia. Mild. We will continue to monitor trend. This has been fairly stable. 5. Hypothyroidism. Last TSH was 3.94. She will continue Synthroid (brand-name) 50 mcg daily. This is refilled today. 6. Hydration with 1L of normal saline on day of disconnect. 7. Followup in one week for toxicity check. She will be hydrated at that time. CBC and CMP will be repeated then. MTDD
[2019-03-25] MEDS: NS(*) 0.9% 1000 ML BAG 1,000 ML IV PRN (12:04)
[2019-03-25 12:05] VITALS: BP 88/66
[2019-03-25] MEDS: PEGFILGRASTIM 6 MG/0.6 ML SYR SUBQ PRN (12:05)
[2019-03-25] MEDS: HEPARIN FLSH (PORT) 500 UN/5ML IVP PRN (13:07)
[2019-03-25 13:09] VITALS: BP 105/72
[2019-03-26 12:44] VITALS: BP 89/62
[2019-03-26] MEDS: NS(*) 0.9% 1000 ML BAG 1,000 ML IV PRN (12:52)
[2019-03-26] MEDS: HEPARIN FLSH (PORT) 500 UN/5ML IVP PRN (14:44)
[2019-03-28 10:14] VITALS: BP 86/78
[2019-03-28] MEDS: HEPARIN FLSH (PORT) 500 UN/5ML IVP PRN (11:16)
[2019-03-30] MEDS: NS(*) 0.9% 1000 ML BAG 1,000 ML IV PRN (09:30)
[2019-03-30 09:31] VITALS: BP 95/68
[2019-03-30] MEDS: LIDOCAINE/SOD BICARB 8.4% SYR ID PRN (09:34)
[2019-03-30] MEDS: HEPARIN FLSH (PORT) 500 UN/5ML IVP PRN (09:34)
[2019-03-30 09:38] LABS: PLATELET COUNT, AUTOMATED 43 K/uL (150-450)
[2019-03-30 10:42] VITALS: BP 116/75
--- NOTE | 2019-03-30 22:15 | ONCOLOGY FOLLOW UP NOTE ---
EVENT DATE: March 30, 2019 CHIEF COMPLAINT Followup for metastatic ovarian cancer. HISTORY OF PRESENT ILLNESS Patient is a 63-year-old female who was seen in one week followup after receiving her third cycle of FOLFIRI and Avastin. This was followed by Michelle. She has required IV hydration for several days in a row. She is overwhelmed by how poorly she feels and is "in bed all the time." She has significant mucositis, which is interfering with her ability to eat and drink. We spent some time discussing a dose reduction, and I will review this with Dr. Rahman later this week. She will receive hydration today, tomorrow, and Friday, which has been helpful. ONCOLOGY HISTORY Patient is a 63-year-old female who was diagnosed with a stage IIIC (pT3 pNX cM0) ovarian carcinoma. She underwent debulking surgery on 04/14/12. She did not receive any adjuvant chemotherapy after her surgery due to insurance issues. She presented with ascites, and PET scan on 02/11/14 showed widespread metastatic disease in the chest, abdomen, and pelvis. CA-125 was high at 1703. She completed six cycles of carboplatin and Taxol on 07/29/14. CA-125 at that time had decreased to 18. PET scan at the end of chemotherapy was negative for metastases, and she was considered to be in complete remission. She then presented in 2018 with a CA-[address] of the chest, abdomen, and pelvis on 01/15/19 showed a 2.8 x 1.8 cm mass in the liver as well as a 3.7 cm mass in the descending colon and infiltrative changes around the bladder with extensive retroperitoneal adenopathy. She underwent colonoscopy with biopsy of the descending colon mass on 01/28/19, and pathology was positive for poorly differentiated carcinoma consistent with metastatic ovarian serous carcinoma. Began treatment with FOLFIRI and Avastin, followed by Michelle on 02/23/19. PAST MEDICAL HISTORY 1. Recurrent metastatic ovarian carcinoma, diagnosed in March 2012. No adjuvant chemotherapy received initially. 2. GERD. 3. Hypothyroidism. PAST SURGICAL HISTORY 1. Debulking surgery, 04/14/12. 2. Repair of right torn Achilles tendon. 3. Surgery for tumor on the right hand. SOCIAL HISTORY The patient is with three children. She is retired from bookkeeping and office work. She does not smoke, drink alcohol, or use illicit drugs. FAMILY HISTORY Father had an unknown type of cancer. Half sister had breast cancer in her 70s. MEDICATIONS 1. Synthroid 50 mcg daily. 2. Omeprazole 20 mg daily. 3. Tramadol 50 mg p.r.n. pain. ALLERGIES 1. PENICILLINS. 2. NITROFURANTOIN. REVIEW OF SYSTEMS A 12-point review of systems is performed and is negative except as stated above. PHYSICAL EXAMINATION VITAL SIGNS: Blood pressure 95/68, pulse 68, R 17, temp 97.1, O2 sat 96%. Post hydration blood pressure 116/75. GENERAL: Patient is a well-developed, thin, fatigued-appearing female in no acute distress. HEAD: Normocephalic, atraumatic. EYES: Sclerae anicteric. MOUTH: Dry mucous membranes with mucositis on inner lower lip and cheeks. NECK: Supple. No palpable adenopathy. CARDIOVASCULAR: Heart rate regular, 68 per minute. LUNGS: Slightly diminished, but clear. EXTREMITIES: No edema. NEUROLOGIC: Nonfocal. LABORATORY CBC today reveals a WBC of 1.1, ANC of 0.4, hemoglobin 10.1, hematocrit 29.2, platelets 43,000. IMPRESSION The patient is a 63-year-old female diagnosed with a stage IIIC (pT3 pNX cM0) ovarian carcinoma in 2011, underwent debulking surgery, but did not receive adjuvant chemotherapy. Presented with ascites, and PET scan in January 2014 showed widespread metastatic disease. Completed six cycles of carboplatin and Taxol on 07/29/14. PET at the end of treatment was negative for metastases. She then presented in 2018 with a CA-[address] of the chest, abdomen, and pelvis on 01/15/19 showed metastatic disease in the liver as well as a mass in the descending colon and infiltrative changes around the bladder with extensive retroperitoneal adenopathy. 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 Began treatment with FOLFIRI and Avastin, followed by Melquiadesta on 02/23/19. PLAN 1. Metastatic ovarian cancer. Patient is seen one week after receiving cycle #3 of FOLFIRI and Avastin. This was followed by Michelle. 2. Toxicities. Patient describes significant toxicities and is "not sure" she wants to continue. We discussed a dose reduction, and I will review this with Dr. Rahman later this week. 3. Response. CA-125 has decreased from 349 on January 13, 2019, to 106 on March 16, 2019. 4. Neutropenia. Reviewed neutropenia precautions. She will notify us if she develops fever or signs of infection. 5. Thrombocytopenia. Reviewed precautions. She has noted some bleeding when blowing her nose, but nothing persistent. She will monitor this. 6. Hypothyroidism. Last TSH was 3.94. She will continue Synthroid (brand name) 50 mcg daily. 7. Mucositis. Grade 3. Magic Mouthwash with nystatin has been prescribed. As above, will discuss dose reduction. 8. Follow up for hydration on 03/31/19 and 04/02/19. 9. Follow up in one week for consideration of cycle #4 of treatment with likely dose reduction. MTDD
[2019-03-31 10:50] VITALS: BP 91/60
[2019-03-31] MEDS: NS(*) 0.9% 1000 ML BAG 1,000 ML IV PRN (10:54)
[2019-04-01] MEDS: NS(*) 0.9% 1000 ML BAG 1,000 ML IV PRN (13:15)
[2019-04-01 13:31] VITALS: BP 90/66
[2019-04-01] MEDS: HEPARIN FLSH (PORT) 500 UN/5ML IVP PRN (14:57)
[2019-04-01 15:00] VITALS: BP 112/83
--- NOTE | 2019-04-01 19:55 | ONCOLOGY FOLLOW UP NOTE ---
EVENT DATE: April 01, 2019 DIAGNOSES 1. Recurrent ovarian carcinoma. 2. 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 3. Hypothyroidism. 4. Gastroesophageal reflux disease (GERD). 5. Hypertension. CHIEF COMPLAINT Patient is here today for followup of her recurrent metastatic ovarian carcinoma. ONCOLOGY HISTORY The patient is a 63-year-old female who was diagnosed with left ovarian carcinoma in 2011. 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 The tumor involves the left ovary, right ovary, omentum, endometrial mucosa, serosal surfaces of the uterus, appendix serosa, sigmoid colon serosa, and left pelvic sidewall. The patient was staged as FIGO stage IIIC (pT3C pNX cM0.) The patient did not receive any adjuvant chemotherapy because she did not have insurance at that time. The patient followed holistic measures for her treatment. PRESENTATION Abdominal distention for the last three weeks. DIAGNOSTIC EVALUATION CT scan abdomen and pelvis done on January 21, 2014, did reveal severe ascites with edematous changes involving the wall of the colon, which could represent edema with underlying ascites and third spacing. There was soft tissue thickening over distal esophagus and portion of stomach, for which an endoscopy was recommended. There was also a small left-sided pleural effusion. CBC drawn today shows a white blood cell count of 3400, hemoglobin at 10.5, hematocrit at 32.1, with a platelet count of 336,000. Her chemistry is remarkable for a sodium of 136, a creatinine of 1.30, calcium of 8.0, and albumin of 2.8. Her CA-125 was 1703. Thyroid stimulating hormone (TSH) is pending. PROCEDURES 1. Esophagogastroduodenoscopy (EGD) and colonoscopy done on January 26, 2014. Esophagogastroduodenoscopy (EGD) showed an erosion noted in the esophagus consistent with esophagitis. Colonoscopy was normal. Duodenal, gastric, distal esophageal biopsies were negative for malignancy. Terminal ileal and random colonic biopsies were also unremarkable. 2. Paracentesis done on February 08, 2014, and cytology of the ascitic fluid came back with acute and chronic inflammation with severe atypia, highly suspicious for malignancy. STAGING WORKUP 1. PET/CT scan done on February 11, 2014, came back positive for abnormal uptake in multiple areas in the chest, abdomen, and pelvis, indicating widespread metastatic involvement. Areas of concern include lymph nodes in the internal mammary chain bilaterally, mediastinal lymph nodes, bilateral pleura diffusely throughout the peritoneum, right cardiophrenic lymph nodes, peritoneal masses, several solid masses in the peritoneum, and retroperitoneal nodes. 2. CA-125 was high at 1703. TREATMENT The patient started chemotherapy with carboplatin and Taxol on February 28, 2014. The patient completed six cycles of carboplatin and Taxol on July 29, 2014. RECURRENCE Patient presented recently with severe abdominal pain at the bladder area with increased frequency of urine, so the patient had some evaluation. She had a CEA done, which was 3.8. CA27.29 was normal at 39.2. CA-125 was high at 349. TSH was high at 15.7. Free T4 was 0.67, and free T3 was 2.2. Her BUN was 29, creatinine 1.5, carbon dioxide was 20, chloride was 108, total protein was 9, and the albumin 4.7. CT chest, abdomen, and pelvis done on the January showed 2.8 x 1.8 cm mass in segment 8 of the liver. There were some gallstones or sludge. Left kidney was atrophic. There were infiltrative changes around the urinary bladder, but the urinary bladder was collapsed and could not be evaluated thoroughly. There was a 3.7 cm mass in the descending colon. There was also extensive retroperitoneal lymphadenopathy, increased paratracheal lymph nodes, could be metastatic. There were also some small 4 mm nodules in the left lobe of the liver which could be also metastatic. Patient had a colonoscopy and biopsy of the descending colon mass done on the January, and the pathology came back positive for poorly differentiated carcinoma consistent with metastasis of ovarian serous carcinoma. CA-125 was 349. CEA was 3.8. Ultrasound of urinary bladder done on the January postvoid was normal, without any blood or abnormality. Patient started treatment with Avastin and FOLFIRI on the February. HISTORY OF PRESENT ILLNESS Patient is here today for followup of her ovarian carcinoma, recurrent, on chemotherapy with Avastin and FOLFIRI. Patient has a tough time with her treatment currently with the development of bone marrow suppression, stomatitis, nausea, vomiting, and diarrhea. She has also chills. Denies any fever. She has nasal discharge. She has sore throat. She is short winded. She has muscle aches sometimes, and she is extremely weak, tired, and fatigued, required hydration with IV fluids on nearly a daily basis currently. PAST MEDICAL HISTORY 1. Left ovarian cancer diagnosed in 2011. No adjuvant chemotherapy received. 2. Gastroesophageal reflux disease (GERD). 3. Hypothyroidism. PAST SURGICAL HISTORY 1. Debulking surgery on April 14, 2012. 2. Repair of right torn Achilles tendon. 3. Surgery for tumor of the right hand. SOCIAL HISTORY Patient is with three children. She is retired from bookkeeping and office work. She denies any abuse of tobacco, alcohol, or drugs. FAMILY HISTORY Father had some sort of cancer. The patient does not know exactly what type. A half sister had breast cancer in her 70s. CURRENT MEDICATIONS Omeprazole 40 mg daily. ALLERGIES PENICILLIN. REVIEW OF SYSTEMS CONSTITUTIONAL: No appetite or weight change. She has chills, but denies any fever. No recent infection. HEENT: Ears: No tinnitus or hearing problem. Nose: She has nasal discharge. No epistaxis. Throat: She has sore throat. No mouth ulcers. Eyes: No diplopia or visual changes. RESPIRATORY: She has cough with expectoration and shortness of breath. No hemoptysis. CARDIOVASCULAR: No chest pain, orthopnea, or paroxysmal nocturnal dyspnea (PND). No edema. No palpitations. GASTROINTESTINAL: She has nausea, vomiting, and diarrhea. No constipation. No change in bowel movements. No heartburn or swallowing difficulties. No abdominal pain. No jaundice. No hematemesis, melena, or rectal bleeding. GENITOURINARY: No hematuria or dysuria. MUSCULOSKELETAL: She has occasional pain in her muscles. NEUROLOGIC: No tingling or numbness in the hands or feet. No headaches or convulsions. HEMATOLOGIC/LYMPHATIC: No bleeding or easy bruising. She is extremely weak, tired, and fatigued. No enlarged lymph nodes. SKIN: No skin rash or lumps. PSYCHIATRIC: No anxiety or depression. PHYSICAL EXAMINATION GENERAL: Looks stable. Well developed, well nourished, and in no acute distress. VITAL SIGNS: Blood pressure 90/66, pulse 67 per minute, respirations 17 per minute, temperature 97.2, pulse ox 97% on room air. HEENT: Head: Atraumatic. No sinus tenderness to palpation. Eyes: No icterus or conjunctivitis. Mouth and Throat: There is severe stomatitis, clear. NECK: Supple. No cervical or supraclavicular lymphadenopathy. LUNGS: Clear to auscultation and percussion bilaterally. HEART: Regular rate and rhythm. No gallops, murmurs, clicks, or rubs. ABDOMEN: Soft and lax. No tenderness. No hepatosplenomegaly. No masses. EXTREMITIES: No cyanosis, clubbing, or edema. LYMPHATICS: No peripheral lymphadenopathy. NEUROLOGIC: Conscious, alert, and oriented times three. No focal motor or sensory deficits. PSYCHIATRIC: Mood and affect appear normal. SKIN: No skin rash, bruise, or purpuric eruption. DIAGNOSTIC DATA CBC showed white count 1.1, hemoglobin 10.1, hematocrit 29.2, platelets 43,000, ANC 0.4. Chem panel showed sodium 134, potassium 3.4, carbon dioxide 15, BUN 21, creatinine 1.4, blood sugar 115. CA19-9 is 78, which is down from 106, which was down from 349. ASSESSMENT 1. Recurrent metastatic ovarian carcinoma. Patient initially diagnosed with stage IIIC (pT3 pNx cM0) after debulking surgery April 14, 2012. Patient did not receive any adjuvant chemotherapy after her surgery because she did not have any insurance at that time. She presented with ascites, and CT scan of the abdomen January 21, 2014, did reveal the presence of significant ascites. Paracentesis February 08, 2014, and cytology of the ascitic fluid came back suspicious for malignancy. PET/CT scan on the January did reveal widespread metastatic disease in the chest, abdomen, and pelvis, including peritoneal lymph nodes. CA-125 was high at 1703. Patient received six cycles of carboplatin and Taxol between February 28, 2014, through July 29, 2014. Her CA-125 dropped to the normal level down to 18 after her treatment. PET/CT scan after the end of her chemotherapy was negative for hypermetabolic metastasis, and the patient was considered in complete remission. Patient presented with high CA-125 at 349, suggestive of recurrence. Her CT chest, abdomen, and pelvis on the January showed 2.8 x 1.8 cm mass in segment 8 of the liver. There was also a 3.7 cm mass in the descending colon. There was also atrophic left kidney. There were infiltrative changes around the area of the bladder. There was extensive retroperitoneal lymphadenopathy. There was also increased paratracheal lymph nodes suggestive of metastasis and 4 mm nodules in the left lower lobe of the lung suggestive of metastasis. Patient had colonoscopy with biopsy of the descending colon mass done on the January, and the pathology came back positive for poorly differentiated carcinoma consistent with metastatic ovarian serous carcinoma. Ultrasound of the bladder done on the January came back normal post void. MRI of the brain was negative for brain metastasis. Patient started chemotherapy with Avastin and FOLFIRI on the February. She received three cycles so far. Her last cycle was on the March, and the patient developed severe bone marrow suppression and stomatitis, nausea, vomiting, and diarrhea from her treatment. Her count still showed bone marrow suppression, so I am planning to hold her chemotherapy until she recovers from her current bone marrow suppression. I am planning to decrease the dose of her chemotherapy by nearly 25% with her next chemotherapy cycle. I will see her on a weekly basis until the patient will recover back again from the effect of current chemotherapy. 2. Chemotherapy-induced anemia. Current hemoglobin 10.1. I will consider a blood transfusion if the hemoglobin drops below 7 g/dL. 3. Chemotherapy-induced thrombocytopenia. Current platelet count 43,000. I will wait for bone marrow recovery, and I will consider platelet transfusion if the patient is bleeding with platelet count less than 50,000, or if the platelet count is less than 10,000 without bleeding. 4. Chemotherapy-induced neutropenia. Current white count 1.1, and the absolute neutrophil count is 400. Patient does not have any fever, and the patient was advised about neutropenic precautions. Patient was advised also to report any fever above 100.5, to be treated aggressively with intravenous antibiotic if this is the case. Patient received Neulasta after her chemotherapy, and I am expecting within the next three or four days her count will improve. 5. Severe stomatitis from her chemotherapy. I am planning to modify the dose of chemotherapy in the future, but currently, I am planning to add Diflucan 200 mg daily to her Magic Mouthwash, and I advised her also to use aloe vera juice as a mouthwash with 15 mL to swish and spit or swallow four times a day and to use also Maalox to soothe the ulcers in her mouth. PLAN 1. Hold the chemotherapy. 2. Diflucan 200 mg daily for 10 days. 3. Aloe vera juice to be used as mouthwash swish and spit or swallow four times a day. 4. CBC and chem panel to be checked weekly. 5. Continue hydration as needed with IV fluid. 6. Patient to return in one week with CBC and chem panel. 7. Patient to contact us for any new concerns or complaints. MTDD
[2019-04-02] MEDS: HEPARIN FLSH (PORT) 500 UN/5ML IVP PRN ×2 (10:38→11:37)
[2019-04-02] MEDS: NS(*) 0.9% 1000 ML BAG 1,000 ML IV PRN (10:38)
[2019-04-02 10:39] VITALS: BP 85/55
[2019-04-02 11:35] VITALS: BP 101/60
[2019-04-03 10:13] VITALS: BP 78/54
[2019-04-03] MEDS: NS(*) 0.9% 1000 ML BAG 1,000 ML IV PRN (10:15)
[2019-04-03 11:21] VITALS: BP 89/58
[2019-04-03] MEDS: HEPARIN FLSH (PORT) 500 UN/5ML IVP PRN (11:24)
[2019-04-04] MEDS: NS(*) 0.9% 1000 ML BAG 1,000 ML IV PRN (10:15)
[2019-04-04 10:16] VITALS: BP 86/61
[2019-04-04] MEDS: HEPARIN FLSH (PORT) 500 UN/5ML IVP PRN (11:14)
[2019-04-04 11:15] VITALS: BP 97/62
[2019-04-05 11:17] VITALS: BP 87/52
[2019-04-05] MEDS: NS(*) 0.9% 1000 ML BAG 1,000 ML IV PRN (11:22)
[2019-04-05] MEDS: HEPARIN FLSH (PORT) 500 UN/5ML IVP PRN (11:22)
[2019-04-05 12:04] LABS: PLATELET COUNT, AUTOMATED 132 K/uL (150-450)
[2019-04-05] MEDS: KCL (*) 20 MEQ/100 ML PREMIX 100 ML IVPB SCH ×2 (12:45→14:30)
--- NOTE | 2019-04-05 13:05 | NUR ---
SW followed up with pt today after the RN production zone leader for this previous weekend noted the patient made remarks about "wanting to end it" and "shooting herself if she could operate a gun or access a gun". SW questioned patient about these remarks. The pt indicated she "felt bad" about making those statements, because she doesn't believe in suicide from a spiritual/sikhism standpoint. The pt was able to verbalize she has been feeling very down, extremely down, at times. And sometimes she does wish she wasn't suffering. She would rather be than suffering. The pt was able to speak to her spiritual beliefs as a positive coping skill, and she holds to her beliefs despite the challenges she faces with her treatment. SW confirmed the pt does not have an active plan to kill herself. However, she does think frequently about an end for her suffering.
[2019-04-05 16:55] VITALS: BP 97/68
--- NOTE | 2019-04-06 01:32 | ONCOLOGY FOLLOW UP NOTE ---
EVENT DATE: April 05, 2019 CHIEF COMPLAINT Followup for metastatic ovarian cancer. HISTORY OF PRESENT ILLNESS Patient is a 63-year-old female who is seen today in followup. She developed grade 2-3 mucositis and has required IV fluids on a daily basis. She remains overwhelmed by how poorly she feels in terms of fatigue and having "no energy." She has not been eating well due to the mucositis. However, today she presents and mucositis has for the most part resolved. She is still eating very little and will receive IV hydration today. Chemotherapy has been on hold due to toxicity. ONCOLOGY HISTORY Patient is a 63-year-old female who was diagnosed with a stage IIIC (pT3 pNX cM0) ovarian carcinoma. She underwent debulking surgery on 04/14/12. She did not receive any adjuvant chemotherapy after her surgery due to insurance issues. She presented with ascites, and PET scan on 02/11/14 showed widespread metastatic disease in the chest, abdomen, and pelvis. CA-125 was high at 1703. She completed six cycles of carboplatin and Taxol on 07/29/14. CA-125 at that time had decreased to 18. PET scan at the end of chemotherapy was negative for metastases, and she was considered to be in complete remission. She then presented in 2019 with a CA-[address] of the chest, abdomen, and pelvis on 01/15/19 showed a 2.8 x 1.8 cm mass in the liver as well as a 3.7 cm mass in the descending colon and infiltrative changes around the bladder with extensive retroperitoneal adenopathy. She underwent colonoscopy with biopsy of the descending colon mass on 01/28/19, and pathology was positive for poorly differentiated carcinoma consistent with metastatic ovarian serous carcinoma. Began treatment with FOLFIRI and Avastin, followed by Neulasta on 02/23/19. Treatment held after three cycles due to toxicity. PAST MEDICAL HISTORY 1. Recurrent metastatic ovarian carcinoma, diagnosed in March 2012. No adjuvant chemotherapy received initially. 2. GERD. 3. Hypothyroidism. PAST SURGICAL HISTORY 1. Debulking surgery, 04/14/12. 2. Repair of right torn Achilles tendon. 3. Surgery for tumor on the right hand. SOCIAL HISTORY The patient is with three children. She is retired from bookkeeping and office work. She does not smoke, drink alcohol, or use illicit drugs. FAMILY HISTORY Father had an unknown type of cancer. Half sister had breast cancer in her 70s. MEDICATIONS 1. Synthroid 50 mcg daily. 2. Omeprazole 20 mg daily. 3. Tramadol 50 mg p.r.n. pain. ALLERGIES 1. PENICILLINS. 2. NITROFURANTOIN. REVIEW OF SYSTEMS A 12-point review of systems is performed and is negative except as stated above. PHYSICAL EXAMINATION VITAL SIGNS: Blood pressure 87/52, pulse 80, respirations 18, temp 98.0, O2 sat 96%. GENERAL: Patient is a well-developed, thin, and fatigued-appearing female in no acute distress. HEAD: Normocephalic, atraumatic. EYES: Sclerae anicteric. MOUTH: Slightly dry mucous membranes; however, mucositis has resolved. NECK: Supple. No palpable adenopathy. CARDIOVASCULAR: Heart rate regular, 80 per minute. LUNGS: Slightly diminished, but clear. EXTREMITIES: No edema. NEUROLOGIC: Nonfocal. LABORATORY CBC today reveals a WBC of 5.6, hemoglobin 8.6, hematocrit 25.1, platelets 132,000. CMP shows a potassium of 2.5, BUN and creatinine of 14 and 1.4 respectively, albumin 2.4. IMPRESSION The patient is a 63-year-old female diagnosed with a stage IIIC (pT3 pNX cM0) ovarian carcinoma in 2011, underwent debulking surgery, but did not receive adjuvant chemotherapy. Presented with ascites, and PET scan in January 2014 showed widespread metastatic disease. Completed six cycles of carboplatin and Taxol on 07/29/14. PET at the end of treatment was negative for metastases. She then presented in 2018 with a CA-[address] of the chest, abdomen, and pelvis on 01/15/19 showed metastatic disease in the liver as well as a mass in the descending colon and infiltrative changes around the bladder with extensive retroperitoneal adenopathy. 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 Began treatment with FOLFIRI and Avastin, followed by Neulasta on 02/23/19. Treatment held after three cycles due to significant toxicity. PLAN 1. Metastatic ovarian cancer. Treatment is currently on hold. She will follow up with Dr. Rahman on 04/08/19. 2. Mucositis. Previously grade 2-3, now for the most part resolved. Mucous membranes are dry, but no lesions visible. No evidence of thrush. 3. Response. CA-125 has decreased from 349 on 01/13/19 to 78 on 03/30/19. 4. Neutropenia. Previous neutropenia has now resolved. She did not develop any fevers. 5. Thrombocytopenia. Platelet count has increased from 43,000 to 132,000. She denies any excessive bruising or bleeding. 6. Anemia. Hemoglobin today is 8.6. Will continue to monitor trend. 7. Hypothyroidism. Last TSH was 3.94. She will continue Synthroid (brand name) 50 mcg daily. 8. Hypokalemia. Potassium today is 2.5. She will receive KCl 40 mEq IV today. 9. Nutrition. Discussed the importance of adding small frequent meals as well as fluids. She relates she is spending much of the day sleeping and not eating but understands the need to work on this. 10. Follow up on 04/08/19 for continued care. Labs will be repeated at that time. REA
[2019-04-06 11:15] VITALS: BP 90/56
[2019-04-06] MEDS: NS(*) 0.9% 1000 ML BAG 1,000 ML IV PRN (11:15)
[2019-04-06 12:22] VITALS: BP 99/62
[2019-04-06] MEDS: HEPARIN FLSH (PORT) 500 UN/5ML IVP PRN (12:29)
[2019-04-07] MEDS: NS(*) 0.9% 1000 ML BAG 1,000 ML IV PRN (12:14)
[2019-04-07 13:26] VITALS: BP 92/60
[2019-04-07] MEDS: HEPARIN FLSH (PORT) 500 UN/5ML IVP PRN (13:26)
[2019-04-08 09:53] LABS: PLATELET COUNT, AUTOMATED 184 K/uL (150-450)
[2019-04-08] MEDS: NS(*) 0.9% 1000 ML BAG 1,000 ML IV PRN (09:54)
[2019-04-08] MEDS: HEPARIN FLSH (PORT) 500 UN/5ML IVP PRN (09:54)
[2019-04-08 10:32] VITALS: BP 82/61
--- NOTE | 2019-04-08 12:29 | [facility] ONCOLOGY NOTE ---
EVENT DATE: April 08, 2019 DIAGNOSES 1. Recurrent ovarian carcinoma. 2. 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 3. Hypothyroidism. 4. Gastroesophageal reflux disease (GERD). 5. Hypertension. CHIEF COMPLAINT Patient is here today for followup of her recurrent metastatic ovarian carcinoma. ONCOLOGY HISTORY The patient is a 63-year-old female who was diagnosed with left ovarian carcinoma in 2011. 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 The tumor involves the left ovary, right ovary, omentum, endometrial mucosa, serosal surfaces of the uterus, appendix serosa, sigmoid colon serosa, and left pelvic sidewall. The patient was staged as FIGO stage IIIC (pT3C pNX cM0.) The patient did not receive any adjuvant chemotherapy because she did not have insurance at that time. The patient followed holistic measures for her treatment. PRESENTATION Abdominal distention for the last three weeks. DIAGNOSTIC EVALUATION CT scan abdomen and pelvis done on January 21, 2014, did reveal severe ascites with edematous changes involving the wall of the colon, which could represent edema with underlying ascites and third spacing. There was soft tissue thickening over distal esophagus and portion of stomach, for which an endoscopy was recommended. There was also a small left-sided pleural effusion. CBC drawn today shows a white blood cell count of 3400, hemoglobin at 10.5, hematocrit at 32.1, with a platelet count of 336,000. Her chemistry is remarkable for a sodium of 136, a creatinine of 1.30, calcium of 8.0, and albumin of 2.8. Her CA-125 was 1703. Thyroid stimulating hormone (TSH) is pending. PROCEDURES 1. Esophagogastroduodenoscopy (EGD) and colonoscopy done on January 26, 2014. Esophagogastroduodenoscopy (EGD) showed an erosion noted in the esophagus consistent with esophagitis. Colonoscopy was normal. Duodenal, gastric, distal esophageal biopsies were negative for malignancy. Terminal ileal and random colonic biopsies were also unremarkable. 2. Paracentesis done on February 08, 2014, and cytology of the ascitic fluid came back with acute and chronic inflammation with severe atypia, highly suspicious for malignancy. STAGING WORKUP 1. PET/CT scan done on February 11, 2014, came back positive for abnormal uptake in multiple areas in the chest, abdomen, and pelvis, indicating widespread metastatic involvement. Areas of concern include lymph nodes in the internal mammary chain bilaterally, mediastinal lymph nodes, bilateral pleura diffusely throughout the peritoneum, right cardiophrenic lymph nodes, peritoneal masses, several solid masses in the peritoneum, and retroperitoneal nodes. 2. CA-125 was high at 1703. TREATMENT The patient started chemotherapy with carboplatin and Taxol on February 28, 2014. The patient completed six cycles of carboplatin and Taxol on July 29, 2014. RECURRENCE Patient presented recently with severe abdominal pain at the bladder area with increased frequency of urine, so the patient had some evaluation. She had a CEA done, which was 3.8. CA27.29 was normal at 39.2. CA-125 was high at 349. TSH was high at 15.7. Free T4 was 0.67, and free T3 was 2.2. Her BUN was 29, creatinine 1.5, carbon dioxide was 20, chloride was 108, total protein was 9, and the albumin 4.7. CT chest, abdomen, and pelvis done on the January showed 2.8 x 1.8 cm mass in segment 8 of the liver. There were some gallstones or sludge. Left kidney was atrophic. There were infiltrative changes around the urinary bladder, but the urinary bladder was collapsed and could not be evaluated thoroughly. There was a 3.7 cm mass in the descending colon. There was also extensive retroperitoneal lymphadenopathy, increased paratracheal lymph nodes, could be metastatic. There were also some small 4 mm nodules in the left lobe of the liver which could be also metastatic. Patient had a colonoscopy and biopsy of the descending colon mass done on the January, and the pathology came back positive for poorly differentiated carcinoma consistent with metastasis of ovarian serous carcinoma. CA-125 was 349. CEA was 3.8. Ultrasound of urinary bladder done on the January postvoid was normal, without any blood or abnormality. Patient started treatment with Avastin and FOLFIRI on the February. HISTORY OF PRESENT ILLNESS Patient is here today for followup of her ovarian carcinoma, recurrent, on chemotherapy with Avastin and FOLFIRI. Patient developed severe bone marrow suppression and stomatitis, nausea, vomiting and diarrhea from her treatment and currently on IV fluid replacement and electrolyte replacement since then. She has occasional epistaxis. She has cough with expectoration and shortness of breath. She has nausea, vomiting, diarrhea and constipation also. She bruises easily. She is extremely weak, tired and fatigued. PAST MEDICAL HISTORY 1. Left ovarian cancer diagnosed in 2011. No adjuvant chemotherapy received. 2. Gastroesophageal reflux disease (GERD). 3. Hypothyroidism. PAST SURGICAL HISTORY 1. Debulking surgery on April 14, 2012. 2. Repair of right torn Achilles tendon. 3. Surgery for tumor of the right hand. SOCIAL HISTORY Patient is with three children. She is retired from bookkeeping and office work. She denies any abuse of tobacco, alcohol, or drugs. FAMILY HISTORY Father had some sort of cancer. The patient does not know exactly what type. A half sister had breast cancer in her 70s. CURRENT MEDICATIONS Omeprazole 40 mg daily. ALLERGIES PENICILLIN. REVIEW OF SYSTEMS CONSTITUTIONAL: No appetite or weight change. She has chills, but denies any fever. No recent infection. HEENT: Ears: No tinnitus or hearing problem. Nose: She has epistaxis. Throat: She has sore throat. No mouth ulcers. Eyes: No diplopia or visual changes. RESPIRATORY: She has cough with expectoration and shortness of breath. CARDIOVASCULAR: No chest pain, orthopnea, or paroxysmal nocturnal dyspnea (PND). No edema. No palpitations. GASTROINTESTINAL: She has nausea, vomiting, alternating diarrhea and constipation. GENITOURINARY: No hematuria or dysuria. MUSCULOSKELETAL: She has occasional pain in her muscles. NEUROLOGIC: No tingling or numbness in the hands or feet. No headaches or convulsions. HEMATOLOGIC/LYMPHATIC: She bruises easily. She is extremely weak, tired, and fatigued. SKIN: No skin rash or lumps. PSYCHIATRIC: No anxiety or depression. PHYSICAL EXAMINATION GENERAL: Looks stable. Well developed, well nourished, and in no acute distress. VITAL SIGNS: Blood pressure 82/61, pulse 85 per minute, respirations 17 per minute, temperature 98.6, pulse ox 97% on room air. HEENT: Head: Atraumatic. No sinus tenderness to palpation. Eyes: No icterus or conjunctivitis. Mouth and Throat: There is severe stomatitis, clear. NECK: Supple. No cervical or supraclavicular lymphadenopathy. LUNGS: Clear to auscultation and percussion bilaterally. HEART: Regular rate and rhythm. No gallops, murmurs, clicks, or rubs. ABDOMEN: Soft and lax. No tenderness. No hepatosplenomegaly. No masses. EXTREMITIES: No cyanosis, clubbing, or edema. LYMPHATICS: No peripheral lymphadenopathy. NEUROLOGIC: Conscious, alert, and oriented times three. No focal motor or sensory deficits. PSYCHIATRIC: Mood and affect appear normal. SKIN: No skin rash, bruise, or purpuric eruption. DIAGNOSTIC DATA CBC showed white count 6.4, hemoglobin 9.8, hematocrit 28.6, platelets 184,000. Chem panel totally normal except potassium 2.9, chloride 111, carbon dioxide 15, creatinine 1.3. ASSESSMENT 1. Recurrent metastatic ovarian carcinoma. Patient initially diagnosed with stage IIIC (pT3 pNx cM0) after debulking surgery April 14, 2012. Patient did not receive any adjuvant chemotherapy after her surgery because she did not have any insurance at that time. She presented with ascites and CT scan of the abdomen January 21, 2014 did reveal the presence of significant ascites. Paracentesis February 08, 2014, and cytology of the ascitic fluid came back suspicious for malignancy. PET/CT scan done February 11, 2014 did reveal widespread metastatic disease in the chest, abdomen, and pelvis, including peritoneal lymph nodes. CA-125 was 1703. Patient received six cycles of carboplatin and Taxol between February 28, 2014 through July 29, 2014. CA-125 dropped to the normal range to 18 after her treatment. PET/CT scan after the end of her chemotherapy was negative for hypermetabolic metastasis and the patient considered in complete remission. She presented with high CA-125 at 349, suggestive of recurrence. CT chest, abdomen, and pelvis on January 15, 2019 showed 2.8 x 1.8 cm mass in segment 8 of the liver. There were nodules in the left lower lobe of the lung, suggestive of metastasis. Patient had colonoscopy with biopsy of the descending colon mass done on January 28, 2019 and the pathology came back positive for poorly differentiated carcinoma, consistent with metastatic ovarian serous carcinoma. Ultrasound of the bladder done on January 27, 2019 came back normal post void. MRI of the brain was negative for metastasis. Patient started chemotherapy with Avastin and FOLFIRI on 2018. She received three cycles so far. Her last cycle on March 23, 2019 complicated with bone marrow suppression and stomatitis, nausea, vomiting, diarrhea from her treatment. Her count improving but her chemotherapy still on hold until patient will recovery from the effect of the last cycle of chemotherapy. I am planning to decrease the dose of her chemotherapy by nearly 25% with her next chemotherapy and I will omit her bullous dose 5-FU. I will see her in a week with CBC, chem panel and CA-125. 2. Chemotherapy-induced anemia. Current hemoglobin 9.8 and patient extremely fatigued and tired. I am planning to transfuse 1 unit of packed RBCs to help her fatigue. 3. Chemotherapy-induced thrombocytopenia. Current platelet count is 184,000, normalized. 4. Chemotherapy-induced neutropenia. Current white count is 6.4, normalized. We will continue to monitor. We will consider resuming her chemotherapy next week with dose modification. 5. Dehydration with acute kidney injury. Current creatinine 1.3. We will continue infusion of ringer's lactate because of her low carbon dioxide. 6. Severe stomatitis from chemotherapy is getting better. Continue Diflucan 200 mg daily. Magic Mouthwash and Aloe Vera juice. 7. Hypokalemia. Current potassium 2.9. I am planning to infuse 40 mEq of potassium chloride IV and I put her on potassium chloride solution 20 mEq once a day. 8. Low carbon dioxide at 15. I am planning to put her on Tums two tablets twice daily and continue to monitor her CMP. PLAN 1. Hold chemotherapy. 2. Continue Diflucan 200 mg daily for 10 days. 3. Aloe vera juice, swish and spit or swallow four times daily. 4. CBC and chem panel to be checked weekly. 5. Ringer's lactate 1L fluid daily. 6. Potassium chloride 40 mEq IV infusion. 7. Potassium chloride 20 mEq solution daily. 8. Tums two tablets twice daily. 9. Patient to return in one week with CBC and chem panel. 10. Patient to contact us for any new concerns or complaints. MTDD
[2019-04-09 12:33] VITALS: BP 80/59
[2019-04-09 12:58] VITALS: BP 80/59
[2019-04-09 13:12] VITALS: BP 87/60
[2019-04-09 15:18] VITALS: BP 110/71
[2019-04-09] MEDS: HEPARIN FLSH (PORT) 500 UN/5ML IVP PRN (15:20)
[2019-04-10] MEDS: LR(*) 1000 ML BAG 1,000 ML IV PRN (09:43)
[2019-04-10 09:44] VITALS: BP 101/74
[2019-04-10] MEDS: HEPARIN FLSH (PORT) 500 UN/5ML IVP PRN (09:56)
[2019-04-10 10:55] VITALS: BP 113/80
[2019-04-11] MEDS: LR(*) 1000 ML BAG 1,000 ML IV PRN (10:05)
[2019-04-11 10:10] VITALS: BP 92/68
[2019-04-11] MEDS: HEPARIN FLSH (PORT) 500 UN/5ML IVP PRN (10:18)
[2019-04-11 11:18] VITALS: BP 125/77
[2019-04-12 12:43] VITALS: BP 100/73
[2019-04-12] MEDS: LR(*) 1000 ML BAG 1,000 ML IV PRN (12:59)
[2019-04-12] MEDS: HEPARIN FLSH (PORT) 500 UN/5ML IVP PRN (12:59)
[2019-04-12 14:45] VITALS: BP 122/76
[~2019-04-13] VITALS: Ht 161.5 cm; Wt 59.2 kg
[~2019-04-13] MED LIST changes: +ALTEPLASE RECOMB 2 MG VIAL IVP PRN; +BEVACIZUMAB IVPB ONE; +D5W IVPB ONE; +DEXTROSE 5%(*) 100 ML BAG 100 ML IVPB PRN; +DEXTROSE IV ONE; +FLUOROURACIL 50 MG/ML SDV IVP ONE; +FLUOROURACIL IV ONE; +IRINOTECAN HCL IVPB ONE; +KCL (*) 20 MEQ/100 ML PREMIX 100 ML IVPB ONE; +KCL (*) 20 MEQ/100 ML PREMIX 100 ML IVPB SCH; +LEUCOVORIN IV ONE; +NS 0.9% IV ONE; +NS 0.9% IVPB ONE; +NS(*) 0.9% 100 ML BAG 100 ML IVPB PRN; +NS(*) 0.9% 250 ML BAG 250 ML IVPB PRN; +NS(*) 0.9% 500 ML BAG 500 ML IV PRN; +WATER FOR INJ,STERILE 20 ML IVP PRN; +[UNRECOGNIZED DRUG - OTHER] IVPB ONE
[2019-04-13] MEDS: LR(*) 1000 ML BAG 1,000 ML IV PRN (11:00)
[2019-04-13 11:11] VITALS: BP 102/76
[2019-04-13 12:34] VITALS: BP 137/87
[2019-04-13] MEDS: HEPARIN FLSH (PORT) 500 UN/5ML IVP PRN (12:37)
== END ==
LOC: ONC 01-13 07:36 → SPU 02-19 09:28 → ONC 02-22 14:00 → SPU 02-26 10:30 → ONC 03-09 08:30 → SPU 03-11 11:23 → ONC 03-23 08:30 → SPU 03-25 11:18 → ONC 03-30 09:00 → SPU 03-31 10:30 → ONC 04-01 13:10 → SPU 04-02 10:00 → ONC 04-05 11:00 → SPU 04-06 11:00
PROVIDERS: ATTEND Internal Medicine Hematology
DX: Z51.11 Encounter for antineoplastic chemotherapy (principal); C56.2 Malignant neoplasm of left ovary; R18.0 Malignant ascites; E03.9 Hypothyroidism, unspecified; K21.9 Gastro-esophageal reflux disease without esophagitis; I10 Essential (primary) hypertension; M54.9 Dorsalgia, unspecified; K59.00 Constipation, unspecified; D69.6 Thrombocytopenia, unspecified
CPT/HCPCS: 36415; 36591; 71250; 74176; 81001; 82378; 83735; 84100; 84439; 84443; 84481; 85025; 85027; 86300; 86304; 86850; 86900; 86901; 86920; 96360; 96361; 96365; 96366; 96368; 96372; 96375; 96411; 96413; 96415; 96416; 96417; G0463; J0640; J1100; J1642; J2469; J2505; J3480; J7030; J7040; J7050; J7060; J7120; J9035; J9190; J9206; P9016; 76705; 82040; 82247; 82310; 82374; 82435; 82565; 82947; 84075; 84132; 84155; 84295; 84450; 84460; 84520; 99212